=== PATIENT | male | born 1950 | race Caucasian/White ===

== ENCOUNTER 2019-04-19 07:53 | Outpatient (CLI) | payer MEDICARE, SELFPAY ==
--- NOTE | 2019-04-19 07:45 | XR_ITS ---
WS: [id number] ABDOMEN: SUPINE FILM HISTORY: RENAL CALCULUS,LEFT COMPARISON: 03/10/2019 Normal bowel gas pattern. Calcification over the RIGHT ilium has been present on multiple prior exami nations. Enthesopathy at the iliac crests. Right kidney: No renal or ureteral stone identified. Left kidney: Previously seen LEFT double pigtail ureteral stent has been removed. No residual calcifi cations of the kidney or ureter. XR/XR KUB 15032 IMPRESSION: 1. Interval removal of the LEFT ureteral stent. 2. No residual LEFT renal or ureteral calcifications identified.
== END 2019-04-19 07:54 | disposition home or self-care (01) ==
LOC: RAD 08:00
PROVIDERS: Family Provider Internal Medicine; PCP Internal Medicine; Visit Provider Urology
DX: N20.0 Calculus of kidney (principal)
CPT/HCPCS: 74018; 81001

== ENCOUNTER → 2019-10-25 12:46 | Outpatient (BNVA) | payer MEDICARE, SELFPAY | PROVIDERS: Family Provider Internal Medicine; PCP Internal Medicine; Referring Provider Internal Medicine; Visit Provider Specialist | DX: G56.02 Carpal tunnel syndrome, left upper limb (principal); R20.0 Anesthesia of skin; M25.542 Pain in joints of left hand | CPT/HCPCS: 95908 ==

== ENCOUNTER → 2020-02-21 08:08 | Outpatient (BNVA) | payer MEDICARE, SELFPAY | PROVIDERS: Family Provider Internal Medicine; PCP Internal Medicine; Referring Provider Internal Medicine; Visit Provider Urology | DX: R97.20 Elevated prostate specific antigen [PSA] (principal); N20.0 Calculus of kidney | CPT/HCPCS: 81003; 84153 ==

== ENCOUNTER → 2020-03-08 13:17 | Outpatient (BNVA) | payer MEDICARE, SELFPAY | PROVIDERS: Family Provider Internal Medicine; PCP Internal Medicine; Visit Provider Urology | DX: R97.20 Elevated prostate specific antigen [PSA] (principal) | CPT/HCPCS: 88305 ==

== ENCOUNTER 2020-03-25 08:36 | Outpatient (CLI) | payer MEDICARE, SELFPAY ==
--- NOTE | 2020-03-25 08:44 | NM_ITS ---
WS: [id number] NUCLEAR MEDICINE WHOLE BODY BONE SCAN HISTORY: PROSTATE CANCER COMPARISON: None available. TECHNIQUE: The patient was injected with 24.4 mCi of Technetium 99m HDP and serial whole-body scintig jerica have been performed with anterior and posterior images. Large [id number] imaging over the sku ll. There is mild increased uptake at the AC joints and glenohumeral joints and also involving the LEFT k nee. No metastatic lesions are identified within the ribs or spine. Normal soft tissue uptake. Normal activity in the kidneys. NM/NM bone scan whole body* [id number] IMPRESSION: No evidence for osseous metastatic disease.
[2020-03-25 09:56] LABS: Blood Urea Nitrogen 6 mg/dL (8-23); Glomerular Filtration Rate 134.4 mL/min (90-130)
--- NOTE | 2020-03-25 10:00 | CT_ITS ---
WS: [id number] CT ABDOMEN AND PELVIS WITH AND WITHOUT CONTRAST HISTORY: PROSTATE CANCER TECHNIQUE: Unenhanced 5 mm axial imaging first performed through the abdomen. Post contrast imaging t hrough the abdomen and pelvis. Oral contrast has not been provided. Sagittal and coronal reformats a re submitted. All CT scans at [facility] use at least one of these dose optimization tech niques: automated exposure control; mA and/or kV adjustment per patient size (includes targeted exams where dose is matched to clinical indication); or iterative reconstruction. CONTRAST: Omnipaque 300; 95 mL IV. DLP: 2993.0 mGy.cm COMPARISON: 01/31/2019 No change in the 2 to 3 mm nodules at the lung bases. Some of these are calcified. No enlarging nodul es. Heart size is slightly enlarged. Small hiatal hernia. Liver is negative. No bile duct dilatation. Cholelithiasis likely. Normal size spleen with granulomat a. Normal pancreas. No bile duct dilatation. Normal adrenal glands. RIGHT kidney: Nonobstructing linear 10 mm calcification in the central kidney seen on the prior study also. No significant increase in size. There is no obstruction. There are numerous hypodensities sca ttered throughout the cortex. Some of these are too small to characterize and others are small cysts. No definite solid mass. LEFT kidney: No obstruction or calcifications. Numerous hypodensities scattered throughout the cortex . The largest from the mid kidney measures 2.4 cm. Some of these are too small to characterize. Aorta: Moderate atherosclerosis with no aneurysm. No GI tract obstruction. The appendix is normal. No significant diverticular disease. Mild constipati on. No ascites or adenopathy. Soft tissues thickening in the LEFT anterior abdominal wall is probably an injection site. Nondistended urinary bladder. Prostate gland is mildly heterogeneous and prominent measuring 5.6 x 3. 9 x 4.7 cm. No osteoblastic or osteolytic bone disease. Bilateral sacroiliitis. SI joints are partially fused. Bi lateral patent inguinal canals. CT/CT abdomen pelvis wo/w [id number] IMPRESSION: 1. No metastatic disease within the abdomen or pelvis. 2. Nonobstructing RIGHT renal calculus measuring 10 mm. 3. Bilateral renal cysts. Some of the hypodensities are too small to character ize. 4. Multiple moderate atherosclerosis aorta. 5. Mildly enlarged heterogeneous prostate gland. 6. Cholelithiasis.
[2020-03-25] MEDS: iohexol 300 mg/mL 100 mL Btl IV (10:45)
== END 2020-03-25 08:37 | disposition home or self-care (01) ==
PROVIDERS: PCP Internal Medicine; Visit Provider Urology
DX: C61 Malignant neoplasm of prostate (principal); K80.20 Calculus of gallbladder without cholecystitis without obstruction; N40.0 Benign prostatic hyperplasia without lower urinary tract symptoms; I70.0 Atherosclerosis of aorta; Q61.02 Congenital multiple renal cysts; N20.0 Calculus of kidney
CPT/HCPCS: 36415; 74178; 78306; 82565; 84520; A9561

== ENCOUNTER 2020-04-04 07:57 | Outpatient (CLI) | payer MEDICARE, SELFPAY ==
--- NOTE | 2020-04-04 17:15 | ONC CON_ITS ---
Dr. Kinney New Patient Note Patient: Ayaan Stanley Unit #: [id number]: 1950 Dicatated By: Phani Kinney M.D.Date of Visit: Apr 04, 2020 Onc MED New Patient/Consult Referring Physician: Dr. Gilbert Muhammad M.D. History of Present Illness: Mr. Ayaan Stanley, is a 69-year-old gentleman with a history of left carpal tunnel syndrome diagnosed in October 2019, as per patient at that time his PMD ordered PSA as a routine follow-up lab work-up and it came back about 10, he was referred to urology for evaluation and on March 08, 2020 he underwent TRUSP/biopsy which confirmed bilateral large volume involvement of Wan 3+4, 4+3(50 to 95%), and one area of 4+4 (60%) and his PSA was 10.7. Patient underwent CT scan of abdomen pelvis and bone scan on March 25, 2020 which showed no evidence of metastatic disease, being high risk e.g. Wan score 4+4, treatment options were discussed by urology including active surveillance, robotic surgery, radiation therapy, cryotherapy, ADT, combined radiotherapy/brachytherapy/ADT, patient is evaluating his options and he is here to discuss about ADT. Patient denies any hematuria denies any urinary retention, denies any bony pains denies any weight loss, denies any fever chills, denies any hematuria, denies any diarrhea or constipation or melena or hematochezia. Patient denies smoking or alcohol use Past Medical History: Mr. Stanley's medical history consists of atrial fibrillation, dyslipidemia, hypertension, renal calculi, and type II diabetes. Past Surgical History: Mr. Stanley's surgical/procedural history consists of lithrotripsy. Medications: Apixaban 1 Tablet (of 5 mg) Oral daily, Cinnamon 1 Capsule (of 500 mg) Oral daily, Digoxin 1 Tablet (of 250 mcg) Oral daily, HumuLIN N KwikPen 500 Units (of 100 Units/mL) Subcutaneous t.i.d., Lisinopril 1 Tablet (of 2.5 mg) Oral daily, metFORMIN HCl 2 Tablet (of 500 mg) Oral daily, Metoprolol Succinate ER 1 Tablet (of 25 mg) Tablet SR 24 HR Oral daily, Simvastatin 1 Tablet (of 80 mg) Oral daily Allergies: No Known Allergies. Social History: Mr. Stanley is . Mr. Stanley has never smoked. He has no history of drinking. Family History: Mr. Stanley's father at age 58: stroke. Review Of Symptoms: Constitutional - Appetite is good and weight is stable. No fever, night sweats, or hot flashes. Energy level is good, ENMT - No sinus congestion/drainage. No mouth sores. No sore throat or difficulty swallowing, Hematologic/Lymphatic - No abnormal bruising or bleeding, Respiratory - No shortness of breath. No cough. No pleuritic pain or hemoptysis, Cardiovascular - No angina pain. No palpitations, Gastrointestinal - No nausea or vomiting. No heartburn or acid reflux. Positive for diarrhea. No constipation. No blood in the stool or black stools, Genitourinary (M) - No dysuria or hematuria. Positive for urinary frequency. No urgency or incontinence, Musculoskeletal - No joint or bone pain, Neurologic - No headache or dizziness. No numbness or tingling. No other focal neurologic symptoms, Psychiatric - No anxiety or depression. No insomnia. Vital Signs: Most recent vitals are not available for this patient. Performance Status: 0 - Fully active, able to carry on all predisease activities without restrictions. (ECOG) Physical Examination: ENMT - No mouth sores, no thrush, no jaundice, Respiratory - Lungs are clear to auscultation, Cardiovascular - Regular rate and rhythm of heart, Abdomen - Soft, bowel sounds present, Extremities - No visible edema. Lab/Imaging: Most recent lab results are not available for this patient. Impression: Prostatic adenocarcinoma per TUR SP/biopsy done on March 08, 2020 final pathology report came back Viper score 3+4, 4+3 (50-95%), 1 area of 4+4 (60%) CT scan of abdomen pelvis done on March 25, 2020 showed no evidence of metastatic disease within the abdomen pelvis, nonobstructive right renal calculus measuring 10 mm and bone scan shows no evidence of osseous metastatic disease Longstanding history of multiple stones status post ESWL in 2013 and in March 2019 ESWL x2 for 1.2 cm left UPJ stone Plan: Discussed with patient regarding his disease status and treatment options including, as per NCCN guidelines, being high risk, radiation therapy and or /brachytherapy/ADT for 2 to 3 years or surgery All the side effects possible benefits associated with ADT including but not limited to hot flashes, mood swings, gynecomastia, bone demineralization, muscle wasting, decreased libido were mentioned. Patient and his expressed full understanding and now would consult surgery and radiation oncology before the make their decision. Patient will call Dr. Muhammad regarding referral to surgery for consultation. He will return to clinic 1 week after surgical evaluation unless patient decided to proceed with surgery. Signed By: Phani Kinney M.D. <<Signature on File>>
== END 2020-04-04 07:58 | disposition home or self-care (01) ==
LOC: ONCMED 08:03
PROVIDERS: PCP Internal Medicine; Visit Provider Internal Medicine Hematology & Oncology
DX: C61 Malignant neoplasm of prostate (principal); Z87.442 Personal history of urinary calculi
CPT/HCPCS: 99203

== ENCOUNTER → 2021-09-16 15:07 | Outpatient (BNVA) | payer MEDICARE, SELFPAY | PROVIDERS: PCP Internal Medicine; Visit Provider Internal Medicine | DX: I48.91 Unspecified atrial fibrillation (principal); I10 Essential (primary) hypertension; E78.5 Hyperlipidemia, unspecified; E11.9 Type 2 diabetes mellitus without complications; Z79.01 Long term (current) use of anticoagulants | CPT/HCPCS: 80048; 83880; 99214 ==

== ENCOUNTER 2022-05-18 13:50 | Oncology outpatient (recurring) (ONCR) | payer MEDICARE, SELFPAY ==
--- NOTE | 2022-05-18 14:44 | N.ONRAD NP_ITS ---
Radiation Oncology Consultation Patient Name: Ayaan Stanley Date of : 1950 Date of Service: 05/18/2022 Attending Physician: Marcelino Giron M.D. Ayaan Stanley was seen in consultation this morning at the request of Marcelino Isaacs M.D. for consideration of salvage radiotherapy in the management of a previously diagnosed prostate cancer with a recent biochemical failure. He initially was diagnosed in March of 2020 with prostate cancer. The initial PSA was 10.7 ng/mL. A TRUS biopsy completed on March 08, 2020 diagnosed an adenocarcinoma of the prostate gland with a Wan score 4+4 (grade group 4). An abdominopelvic CT scan and bone scintigraphy did not demonstrate metastatic disease. A laparoscopic robot-assisted prostatectomy with bilateral pelvic lymphadenectomy was performed by Marcelino Isaacs M.D on June 12, 2020. The pathology report (outside hospital records were requested and reviewed in [facility]) confirmed an adenocarcinoma the prostate (40-50 % involvement) with a Wan score of 4+3 (pT2c). A positive surgical margin for malignancy was identified at the apex and posterior aspect of the specimen. Perineural invasion was noted. A total of 2 pelvic lymph nodes (1 right pelvic lymph node and 1 left pelvic lymph node) did not harbor malignancy. The initial postoperative PSA undetectable. The patient's PSA level incipiently has risen to 0.12 ng/mL in April of 2022. He was referred for salvage radiotherapy. I reviewed the recommendations The National Comprehensive Cancer Network Guidelines with consideration of androgen deprivation therapy for salvage radiotherapy. I also discussed the RTOG 9601 trial that determined 24 months of antiandrogen therapy with salvage radiotherapy resulted in an improvement in overall survival, the GETUG-AFU 16 and GETUG-AFU 17 studies that attested improvement in progression-free survival to the patients that were randomized to radiotherapy in conjunction with short-term hormonal suppression, as well as, the RADICALS studies that demonstrated non-inferiority in progression-free survival for salvage radiotherapy compared to adjuvant treatment. I would endorse a 6 1/2 week course of radiotherapy with consideration for concurrent gonadotropin releasing hormone agonist pharmacotherapy. I will order a scrotal ultrasound on account of his complaint of right-sided scrotal pain. Prior to beginning treatment, a CT scan will be acquired in the treatment position to delineate the clinical target volume. Toxicities of pelvic radiotherapy were also canvassed. The patient has verbalized understanding would like proceed as recommended. The patient's medical treatment plan was discussed with Marcelino Isaacs M.D. Signed by: Dr. Marcelino Giron 05/18/2022 2:42:37 PM
== END 2022-06-02 23:59 | disposition home or self-care (01) ==
LOC: ONCMED 13:50
PROVIDERS: PCP Internal Medicine; Visit Provider Radiology Radiation Oncology
DX: C61 Malignant neoplasm of prostate (principal)
CPT/HCPCS: 99205

== ENCOUNTER 2022-06-15 08:04 | Outpatient (CLI) | payer MEDICARE, SELFPAY ==
--- NOTE | 2022-06-15 08:30 | US_ITS ---
WS: [id number] TESTICULAR ULTRASOUND HISTORY: scrotal edema COMPARISON: None available. TECHNIQUE: Real-time and color Doppler imaging or utilized to perform a testicular ultrasound. Right testicle: 4.4 cm x 3.5 cm x 2.9 cm. Normal sized testicle. Very mild heterogeneity throughout the testicle but no mass. Normal vascularit y. Normal color Doppler is present throughout. Systolic and diastolic velocities are both present. Large mildly complex hydrocele. Low level echoes are noted within the hydrocele. There is also very m ild scrotal wall thickening. No focal collection. Right epididymis: Not visualized. Left testicle: 4.5 cm x 3.3 cm x 2.4 cm. Normal sized testicle. Mild heterogeneity but no mass. Normal vascularity. Normal color Doppler is present throughout. Systolic and diastolic velocities are both present. No significant hydrocele. Left epididymis: Normal epididymis with no increased vascularity. Minimal scrotal wall thickening without a focal collection. US/US scrotum [id number] IMPRESSION: 1. No testicular mass or torsion. 2. Large minimally complex RIGHT hydrocele. 3. Very mild scrotal wall thickening.
== END 2022-06-15 08:05 | disposition home or self-care (01) ==
PROVIDERS: PCP Internal Medicine; Visit Provider Radiology Radiation Oncology
DX: N50.89 Other specified disorders of the male genital organs (principal); I48.91 Unspecified atrial fibrillation; I10 Essential (primary) hypertension; N43.3 Hydrocele, unspecified
CPT/HCPCS: 76870; 99214

== ENCOUNTER 2022-07-31 08:43 | Oncology outpatient (recurring) (ONCR) | payer MEDICARE, SELFPAY ==
[2022-07-06 14:56] LABS: Basophils # 0.1 10^3/uL (0.0-0.1); Basophils % 0.7 %; Eosinophils # 0.2 10^3/uL (0.0-0.8); Eosinophils % 2.3 %; Hematocrit 44.1 % (42.0-52.0); Hemoglobin 14.7 g/dL (11.7-16.6); Lymphocytes # 3.5 10^3/uL (0.8-4.8); Lymphocytes % 46.2 %; Mean Corpuscular HGB Conc 33.3 g/dL (30.0-36.0); Mean Corpuscular Hemoglobin 31.5 pg (28.0-34.0); Mean Corpuscular Volume 94.4 fl (80-94); Mean Platelet Volume 9.6 fL (7.4-10.4); Monocytes # 0.8 10^3/uL (0.2-0.9); Monocytes % 10.2 %; Neutrophils # 3.01 10^3/uL (1.8-7.7); Neutrophils % 40.2 %; Nucleated Red Blood Cells % 0 %; Platelet Count 216 10^3/cmm (130-400); Red Blood Count 4.67 10^6/uL (4.1-5.3); Red Cell Distribution Width 13.3 % (12.1-15.1); White Blood Count 7.5 10^3/uL (4.0-10.0)
[2022-07-06 15:16] LABS: Alanine Aminotransferase 30 U/L (0-41); Albumin Level 4.1 g/dL (3.5-5.2); Alkaline Phosphatase 59 U/L (40-130); Anion Gap 14.7 (5-19); Aspartate Amino Transferase 28 U/L (0-40); Blood Urea Nitrogen 9 mg/dL (8-23); Calcium 9.3 mg/dL (8.5-10.5); Carbon Dioxide 23 mmol/L (22-29); Chloride 101 mmol/L (98-107); Globulin 1.9 g/dL (1.3-4.6); Glomerular Filtration Rate 133.6 mL/min (90-130); Glucose 118 mg/dL (65-115); Osmolality Calculated 280 mOsm/kg (285-295); Potassium 3.7 mmol/L (3.5-5.1); Sodium 135 mmol/L (136-145); Total Bilirubin 1.4 mg/dL (0.15-1.2)
[2022-07-06 19:22] LABS: Prostate Specific Antigen < 0.014 ng/mL (0-4)
--- NOTE | 2022-07-15 | CT_ITS ---
Radiation Therapy Planning CT images; total exam DLP: 1152.33 mGy-cm MTDD
--- NOTE | 2022-07-20 11:01 | ONCRAD TMN_ITS ---
Radiation Oncology Treatment Management Note Patient Name: Ayaan Stanley Date of : 1950 Date of Service: 07/20/2022 Attending Physician: Marcelino Giron M.D. Ayaan Stanley is a 71 year-old white male previously diagnosed prostate cancer with a recent biochemical failure. He initially was diagnosed in March of 2020 with prostate cancer. The initial PSA was 10.7 ng/mL. A TRUS biopsy completed on March 08, 2020 diagnosed an adenocarcinoma of the prostate gland with a Henderson score 4+4 (grade group 4). An abdominopelvic CT scan and bone scintigraphy did not demonstrate metastatic disease. A laparoscopic robot-assisted prostatectomy with bilateral pelvic lymphadenectomy was performed by Marcelino Isaacs M.D on June 12, 2020. The pathology report confirmed an adenocarcinoma the prostate (40-50 % involvement) with a Wan score of 4+3 (pT2c). A positive surgical margin for malignancy was identified at the apex and posterior aspect of the specimen. Perineural invasion was noted. A total of 2 pelvic lymph nodes (1 right pelvic lymph node and 1 left pelvic lymph node) did not harbor malignancy. The initial postoperative PSA undetectable. The patient's PSA level incipiently has risen to 0.12 ng/mL in April of 2022. A GnRh agonist was prescribed. The patient has received 2 Gy of a prescribed 66 Agudelo to the prostate fossa with an intensity modulated radiotherapy plan utilizing a step and shoot treatment technique. Upon review of systems, he denied any gastrointestinal complaints related to radiotherapy. Baseline nocturia is 3 times. On physical examination, the patient weighed 267 lbs. His temperature was 97 ???F and the blood pressure was 147/89 mmHg. The pulse was 56 bpm and his respiratory rate was 16. Continue pelvic radiotherapy as prescribed. Signed by: Marcelino Giron 07/20/2022 10:59:33 AM
--- NOTE | 2022-07-27 10:44 | ONCRAD TMN_ITS ---
Radiation Oncology Treatment Management Note Patient Name: Ayaan Stanley Date of : 1950 Date of Service: 07/27/2022 Attending Physician: Marcelino Giron M.D. Ayaan Stanley is a 71 year-old white male previously diagnosed prostate cancer with a recent biochemical failure. He initially was diagnosed in March of 2020 with prostate cancer. The initial PSA was 10.7 ng/mL. A TRUS biopsy completed on March 08, 2020 diagnosed an adenocarcinoma of the prostate gland with a [place] score 4+4 (grade group 4). An abdominopelvic CT scan and bone scintigraphy did not demonstrate metastatic disease. A laparoscopic robot-assisted prostatectomy with bilateral pelvic lymphadenectomy was performed by Marcelino Isaacs M.D on June 12, 2020. The pathology report confirmed an adenocarcinoma the prostate (40-50 % involvement) with a Wan score of 4+3 (pT2c). A positive surgical margin for malignancy was identified at the apex and posterior aspect of the specimen. Perineural invasion was noted. A total of 2 pelvic lymph nodes (1 right pelvic lymph node and 1 left pelvic lymph node) did not harbor malignancy. The initial postoperative PSA undetectable. The patient's PSA level incipiently has risen to 0.12 ng/mL in April of 2022. A GnRh agonist was prescribed. The patient has received 22 Gy of a prescribed 66 Agudelo to the prostatic fossa with an intensity modulated radiotherapy plan utilizing a step and shoot treatment technique. Upon review of systems, he denied any complaints related to radiotherapy. On physical examination, the patient weighed 269 lbs. His temperature was 97.3 ???F and the blood pressure was 172/80 mmHg. The pulse was 68 bpm and his respiratory rate was 18. Continue pelvic radiotherapy as planned. Signed by: Marcelino Giron 07/27/2022 10:43:20 AM
== END 2022-07-31 12:06 | disposition home or self-care (01) ==
PROVIDERS: Internal Medicine Hematology & Oncology; PCP Internal Medicine; Visit Provider Radiology Radiation Oncology
DX: Z51.0 Encounter for antineoplastic radiation therapy (principal); C61 Malignant neoplasm of prostate; Z90.89 Acquired absence of other organs; C77.8 Secondary and unspecified malignant neoplasm of lymph nodes of multiple regions
CPT/HCPCS: 36415; 77300; 77301; 77334; 77336; 77338; 77385; 77470; 80053; 84153; 85025; 99024

== ENCOUNTER 2022-08-21 09:42 | Oncology outpatient (recurring) (ONCR) | payer MEDICARE, SELFPAY ==
--- NOTE | 2022-08-03 10:55 | ONCRAD TMN_ITS ---
Radiation Oncology Treatment Management Note Patient Name: Ayaan Stanley Date of : 1950 Date of Service: 08/03/2022 Attending Physician: Marcelino Giron M.D. Ayaan Stanley is a 71 year-old white male previously diagnosed prostate cancer with a recent biochemical failure. He initially was diagnosed in March of 2020 with prostate cancer. The initial PSA was 10.7 ng/mL. A TRUS biopsy completed on March 08, 2020 diagnosed an adenocarcinoma of the prostate gland with a [place] score 4+4 (grade group 4). An abdominopelvic CT scan and bone scintigraphy did not demonstrate metastatic disease. A laparoscopic robot-assisted prostatectomy with bilateral pelvic lymphadenectomy was performed by Marcelino Isaacs M.D on June 12, 2020. The pathology report confirmed an adenocarcinoma the prostate (40-50 % involvement) with a [place] score of 4+3 (pT2c). A positive surgical margin for malignancy was identified at the apex and posterior aspect of the specimen. Perineural invasion was noted. A total of 2 pelvic lymph nodes (1 right pelvic lymph node and 1 left pelvic lymph node) did not harbor malignancy. The initial postoperative PSA undetectable. The patient's PSA level incipiently has risen to 0.12 ng/mL in April of 2022. A GnRh agonist was prescribed. The patient has received 22 Gy of a prescribed 66 Agudelo to the prostatic fossa with an intensity modulated radiotherapy plan utilizing a step and shoot treatment technique. Upon review of systems, he reported increase urinary frequency. On physical examination, the patient weighed 268 lbs. His temperature was 96.5 ???F and the blood pressure was 133/63 mmHg. The pulse was 60 bpm and his respiratory rate was 18. There was no erythema of the skin in the treatment alonzo. Continue pelvic radiotherapy as prescribed. Signed by: Marcelino Giron 08/03/2022 10:54:03 AM
--- NOTE | 2022-08-10 11:00 | ONCRAD TMN_ITS ---
Radiation Oncology Treatment Management Note Patient Name: Ayaan Stanley Date of : 1950 Date of Service: 08/10/2022 Attending Physician: Marcelino Giron M.D. Ayaan Stanley is a 71 year-old white male previously diagnosed prostate cancer with a recent biochemical failure. He initially was diagnosed in March of 2020 with prostate cancer. The initial PSA was 10.7 ng/mL. A TRUS biopsy completed on March 08, 2020 diagnosed an adenocarcinoma of the prostate gland with a [place] score 4+4 (grade group 4). An abdominopelvic CT scan and bone scintigraphy did not demonstrate metastatic disease. A laparoscopic robot-assisted prostatectomy with bilateral pelvic lymphadenectomy was performed by Marcelino Isaacs M.D on June 12, 2020. The pathology report confirmed an adenocarcinoma the prostate (40-50 % involvement) with a [place] score of 4+3 (pT2c). A positive surgical margin for malignancy was identified at the apex and posterior aspect of the specimen. Perineural invasion was noted. A total of 2 pelvic lymph nodes (1 right pelvic lymph node and 1 left pelvic lymph node) did not harbor malignancy. The initial postoperative PSA undetectable. The patient's PSA level incipiently has risen to 0.12 ng/mL in April of 2022. A GnRh agonist was prescribed. The patient has received 32 Gy of a prescribed 66 Agudelo to the prostatic fossa with an intensity modulated radiotherapy plan utilizing a step and shoot treatment technique. Upon review of systems, he did not describe any new complaints. On physical examination, the patient weighed 265 lbs. His temperature was 97.3 ???F and the blood pressure was 119/89 mmHg. The pulse was 88 bpm and his respiratory rate was 18. There was no erythema of the skin in the treatment alonzo. Continue pelvic radiotherapy as planned. Signed by: Marcelino Giron 08/10/2022 10:58:41 AM
[2022-08-12 11:07] LABS: Bilirubin Urine Neg (Negative); Blood Urine Neg (Negative); Glucose Urine UA 4+ (Normal); Ketones Urine 1+ (Negative); Leukocyte Esterase Urine Negative (Negative); Nitrate Urine Negative (Negative); Protein Urine Neg (Negative); Urine Appearance Clear (CLEAR); Urine Color Colorless (Yellow); Urobilinogen Urine Neg (Negative); pH Urine 7 (5-7)
[2022-08-12 11:08] LABS: Add Urine Culture? No; RBC Urine RARE /hpf (0-2)
--- NOTE | 2022-08-17 11:02 | N.ONRD TS_ITS ---
Radiation OncologyTreatment Summary Patient Name: Ayaan Stanley Date of : 1950 Date of Service: 08/17/2022 Attending Physician: Marcelino Giron M.D. Ayaan Stanley is a 71 year-old white male previously diagnosed prostate cancer with a recent biochemical failure. He initially was diagnosed in March of 2020 with prostate cancer. The initial PSA was 10.7 ng/mL. A TRUS biopsy completed on March 08, 2020 diagnosed an adenocarcinoma of the prostate gland with a [place] score 4+4 (grade group 4). An abdominopelvic CT scan and bone scintigraphy did not demonstrate metastatic disease. A laparoscopic robot-assisted prostatectomy with bilateral pelvic lymphadenectomy was performed by Marcelino Isaacs M.D on June 12, 2020. The pathology report confirmed an adenocarcinoma the prostate (40-50 % involvement) with a [place] score of 4+3 (pT2c). A positive surgical margin for malignancy was identified at the apex and posterior aspect of the specimen. Perineural invasion was noted. A total of 2 pelvic lymph nodes (1 right pelvic lymph node and 1 left pelvic lymph node) did not harbor malignancy. The initial postoperative PSA undetectable. The patient's PSA level incipiently has risen to 0.12 ng/mL in April of 2022. A GnRh agonist was prescribed. The patient has received 42 Gy of a prescribed 66 Agudelo to the prostatic fossa with an intensity modulated radiotherapy plan utilizing a step and shoot treatment technique. Upon review of systems, he did not report any new symptoms. On physical examination, the patient weighed 264 lbs. His temperature was 97.1 ???F and the blood pressure was 146/95 mmHg. The pulse was 62 bpm and his respiratory rate was 18. There was no erythema of the skin in the treatment alonzo. Continue pelvic radiotherapy as prescribed. Signed by: Marcelino Giron 08/30/2022 9:47:47 AM
== END 2022-08-24 09:24 | disposition home or self-care (01) ==
PROVIDERS: PCP Internal Medicine; Visit Provider Radiology Radiation Oncology
DX: Z51.0 Encounter for antineoplastic radiation therapy (principal); C61 Malignant neoplasm of prostate; Z90.89 Acquired absence of other organs; C77.8 Secondary and unspecified malignant neoplasm of lymph nodes of multiple regions; Z79.899 Other long term (current) drug therapy
CPT/HCPCS: 77336; 77385; 81001; 99024; 99213

== ENCOUNTER 2022-09-02 09:47 | Oncology outpatient (recurring) (ONCR) | payer MEDICARE, SELFPAY ==
--- NOTE | 2022-08-24 12:46 | ONCRAD TMN_ITS ---
Radiation Oncology Weekly Treatment Management Patient: Jaden Kuo MR#: [id number] : 1950 Attending Physician: Cornelius Villalobos M.D. Date of Service: 08/24/2022 Referring Physician(s) : Phani Kinney M.D. Diagnosis: C61 - Malignant neoplasm of prostate, Diagnosed 04/04/2020 (Active) Radiotherapy to date: Course: Prostate Ca BCF, Treatment Site: Prostate Ca - Biochemical Failure, Ref. ID: [id number], Energy: 6X, Dose/Fx (cGy): 200, #Fx: / 33, Dose Correction (cGy): 0, Total Dose (cGy): 5,200, Start Date: 07/20/2022, Elapsed Days: 35 Reason for visit: The patient is being seen today as part of their regularly scheduled weekly on treatment visits to assess for acute toxicities from radiotherapy. Review of Systems: 5 x nocturia which is ongoing. Not interested in beginning Flomax. Bowels pass with some pain which was absent today. Using prep H and some other local treatment. No diarrhea. Inactive at home watching TV. Vital Signs: Performed on 08/24/2022 10:58 AM BMI - 36.43 kg/m2 (high), Height - 71 in, Weight - 261.2 lbs, Temperature - 97.2 f, Pulse - 74 /min, Respiration - 18 /min, O2 Sat - 97 %, Pain - 0, Fatigue - 5 and BP - 171/ 88 mm(hg)(high/). Physical Exam: Imaging: Radiation therapy imaging related to accurate target localization (i.e. KV, MV and CBCT) was reviewed. Appropriate changes, if any, were made to ensure treatment accuracy. Plan: Good tolerance of treatment. Continue as planned. Signed by: Cornelius Villalobos 08/24/2022 12:44:25 PM
--- NOTE | 2022-09-01 12:13 | ONCRAD TMN_ITS ---
Radiation Oncology Treatment Management Note Patient Name: Ayaan Stanley Date of : 1950 Date of Service: 09/01/2022 Attending Physician: Marcelino Giron M.D. Ayaan Stanley is a 71 year-old white male previously diagnosed prostate cancer with a recent biochemical failure. He initially was diagnosed in March of 2020 with prostate cancer. The initial PSA was 10.7 ng/mL. A TRUS biopsy completed on March 08, 2020 diagnosed an adenocarcinoma of the prostate gland with a Alva score 4+4 (grade group 4). An abdominopelvic CT scan and bone scintigraphy did not demonstrate metastatic disease. A laparoscopic robot-assisted prostatectomy with bilateral pelvic lymphadenectomy was performed by Marcelino Isaacs M.D on June 12, 2020. The pathology report confirmed an adenocarcinoma the prostate (40-50 % involvement) with a Wan score of 4+3 (pT2c). A positive surgical margin for malignancy was identified at the apex and posterior aspect of the specimen. Perineural invasion was noted. A total of 2 pelvic lymph nodes (1 right pelvic lymph node and 1 left pelvic lymph node) did not harbor malignancy. The initial postoperative PSA undetectable. The patient's PSA level incipiently has risen to 0.12 ng/mL in April of 2022. A GnRh agonist was prescribed. The patient has received 62 Gy of a prescribed 66 Agudelo to the prostatic fossa with an intensity modulated radiotherapy plan utilizing a step and shoot treatment technique. Upon review of systems, he continues to describe nocturia (3-5 times). On physical examination, the patient weighed 267 lbs. His temperature was 96.8 ???F and the blood pressure was 142/77 mmHg. The pulse was 81 bpm and his respiratory rate was 18. Continue pelvic radiotherapy as planned. Signed by: Marcelino Giron 09/01/2022 12:11:59 PM
== END 2022-09-02 23:59 | disposition home or self-care (01) ==
PROVIDERS: PCP Internal Medicine; Visit Provider Radiology Radiation Oncology
DX: Z51.0 Encounter for antineoplastic radiation therapy (principal); C61 Malignant neoplasm of prostate; Z90.89 Acquired absence of other organs; C77.8 Secondary and unspecified malignant neoplasm of lymph nodes of multiple regions; R35.1 Nocturia; Z79.899 Other long term (current) drug therapy
CPT/HCPCS: 77336; 77385; 99024

== ENCOUNTER 2022-10-02 10:26 | Oncology outpatient (recurring) (ONCR) | payer MEDICARE, SELFPAY ==
--- NOTE | 2022-09-03 10:03 | N.ONRD TS_ITS ---
Radiation OncologyTreatment Summary Patient Name: Ayaan Stanley Date of : 1950 Date of Service: 09/03/2022 Attending Physician: Marcelino Giron M.D. Jaden Kuo has completed salvage radiotherapy for the management of prostate cancer with a recent biochemical failure. He initially was diagnosed in March of 2020 with prostate cancer. The initial PSA was 10.7 ng/mL. A TRUS biopsy completed on March 08, 2020 diagnosed an adenocarcinoma of the prostate gland with a Wan score 4+4 (grade group 4). An abdominopelvic CT scan and bone scintigraphy did not demonstrate metastatic disease. A laparoscopic robot-assisted prostatectomy with bilateral pelvic lymphadenectomy was performed by Marcelino Isaacs M.D on June 12, 2020. The pathology report confirmed an adenocarcinoma the prostate (40-50 % involvement) with a Wan score of 4+3 (pT2c). A positive surgical margin for malignancy was identified at the apex and posterior aspect of the specimen. Perineural invasion was noted. A total of 2 pelvic lymph nodes (1 right pelvic lymph node and 1 left pelvic lymph node) did not harbor malignancy. The initial postoperative PSA undetectable. The patient's PSA level incipiently has risen to 0.12 ng/mL in April of 2022. Pelvic radiation therapy was delivered between the dates of July 20, 2022 through September 03, 2022. A prescribed dose of 66 Gy was delivered in 33 fractions encompassing 45 elapsed days. The prostatic fossa was treated utilizing an intensity modulated radiotherapy plan with a step and shoot treatment technique. The plan arranged nine gantry angles (0???, 30???, 60???, 120???, 150???, 220???, 260???, 300???, and 330???) replicating an arc. The collimator rotation was 0???. The field sizes spanned between 13 cm x 9 cm to 14 cm x 9 cm. The SSDs measured a minimum of 77.3 cm to a maximum of 85.5 cm. The ports delivered 241 MU, 184 MU, 173 MU, 153 MU, 175 MU, 186 MU, 178 MU, 138 MU, and 198 MU corresponding to the gantry angles described. Low-energy photons were prescribed. All treatments were performed with the [employer] linear accelerator and an isocentric technique. High energy photons were prescribed. The dose was calculated by Anisotropic Analytic Algorithm with the plan normalized to deliver 100% of the prescription dose to 98% of the planning target volume. A GnRH agonist was administered by his urologist prior to radiotherapy. Signed by: Dr. Marcelino Giron 09/03/2022 10:00:51 AM
--- NOTE | 2022-10-02 10:55 | ONCRAD EPV_ITS ---
Radiation Oncology Follow-Up Note Patient Name: Ayaan Stanley Date of : 1950 Date of Service: 10/02/2022 Attending Physician: Marcelino Giron M.D. Jaden Kuo returned to my office this morning for a scheduled follow-up appointment. He completed salvage prostatic fossa radiotherapy in September. He initially was diagnosed in March of 2020 with prostate cancer. The initial PSA was 10.7 ng/mL. A TRUS biopsy completed on March 08, 2020 diagnosed an adenocarcinoma of the prostate gland with a Wan score 4+4 (grade group 4). An abdominopelvic CT scan and bone scintigraphy did not demonstrate metastatic disease. A laparoscopic robot-assisted prostatectomy with bilateral pelvic lymphadenectomy was performed by Marcelino Isaacs M.D on June 12, 2020. The pathology report confirmed an adenocarcinoma the prostate (40-50 % involvement) with a Wan score of 4+3 (pT2c). A positive surgical margin for malignancy was identified at the apex and posterior aspect of the specimen. Perineural invasion was noted. A total of 2 pelvic lymph nodes (1 right pelvic lymph node and 1 left pelvic lymph node) did not harbor malignancy. The initial postoperative PSA undetectable. The patient's PSA level incipiently has risen to 0.12 ng/mL in April of 2022. Pelvic radiation therapy was delivered between the dates of July 20, 2022 through September 03, 2022. A prescribed dose of 66 Gy was delivered in 33 fractions encompassing 45 elapsed days. On review of systems, he described nocturia (3-4 times). On physical examination, he weighed 260 pounds. The temperature was 96.2???F and his blood pressure was 119/84 mmHg. The pulse was 56 bpm and his respiratory rate was 18 breaths per minute. Genitourinary exam was deferred. In summary, Mr. Kuo returned for a routine post-radiotherapy follow-up. He continues to decline Flomax for LUTS. He will continue follow-up with his urologist as scheduled. Signed by: Dr. Marcelino Giron 10/02/2022 10:54:25 AM
== END 2022-10-02 23:59 | disposition home or self-care (01) ==
PROVIDERS: PCP Internal Medicine; Visit Provider Internal Medicine Medical Oncology
DX: Z51.0 Encounter for antineoplastic radiation therapy (principal); C61 Malignant neoplasm of prostate; Z90.89 Acquired absence of other organs; C77.8 Secondary and unspecified malignant neoplasm of lymph nodes of multiple regions
CPT/HCPCS: 77014; 77336; 77385; 99024

== ENCOUNTER 2022-12-09 14:54 | Outpatient (CLI) | payer MEDICARE, SELFPAY ==
--- NOTE | 2022-12-09 15:14 | CT_ITS ---
WS: [id number] CT ABDOMEN AND PELVIS WITH CONTRAST HISTORY: ABDOMINAL PAIN, LEFT upper quadrant pain. TECHNIQUE: Imaging performed of the abdomen and pelvis with IV contrast. Single phase imaging of the abdomen. Coronal and sagittal reformats are submitted. All CT scans at [facility] use at [facility] [facility] one of these dose optimization techniques: automated exposure control; mA and/or kV adjustment per patient size (includes targeted exams where dose is matched to clinical indication); or iterative re construction. IV CONTRAST: Omnipaque 350; 100 mL IV. Oral contrast: Yes. DLP: 1038.33 mGy.cm COMPARISON: 03/25/2020 Lower thorax: Benign pulmonary nodules at the lung bases. Some of these are calcified. Nodules were i dentified in 2020 also. Mild cardiomegaly. Small hiatal hernia. Liver/biliary system: Moderate hepatomegaly. Mild hepatic steatosis. No mass. Normal portal vein. Gallbladder: Very tiny foci of increased density within the gallbladder. Suspect cholelithiasis. No e vidence for acute cholecystitis. Pancreas: Again noted is atrophied pancreatic tail. This is probably a normal variant as this has bee n documented on prior studies. Spleen: Normal size with granulomata. Adrenal glands: Normal. Right kidney: Normal size kidney. Cortical cysts throughout the kidney. Some of these are too small t o characterize. No solid mass. Left kidney: Normal size kidney. Cortical cysts with the largest measuring 2.5 cm. Some of these jd ical hypodensities are too small to characterize. Aorta: Mild atherosclerosis with no aneurysm. Lymphadenopathy: None. Free fluid: None. GI tract: No GI tract obstruction. Normally distended stomach. No small bowel obstruction. Normal toan endix. Increasing fecal material throughout the colon with chronic constipation. Hernia in the LEFT l ateral abdominal wall near the level of the iliac crest contains a loop of sigmoid colon. There is no obstruction. Abdominal wall: LEFT lateral abdominal wall hernia extends through the deep and superficial musculatu re of the abdominal wall. Hernia contains a loop of colon. There is no obstruction at this time. The orifice of the hernia is 2.6 cm. Pelvis: No free fluid or adenopathy within the pelvis. Bones: Mild increase in the lumbar lordosis. Mild narrowing and partial fusion of the SI joints. IMPRESSION: 1. LEFT lateral abdominal wall hernia extends through the deep and superficial musculature. Hernia c ontains a loop of nondilated or obstructed sigmoid colon. 2. Bilateral renal cysts. Additional low-attenuation cortical hypodensities are too small to charact erize. 3. Moderate cardiomegaly. 4. Moderate hepatomegaly with hepatic steatosis. 5. Suspicious but indeterminate for cholelithiasis. No evidence for acute cholecystitis. Gallbladder can be evaluated by ultrasound1
[2022-12-09 16:29] LABS: Blood Urea Nitrogen 7 mg/dL (8-23); Glomerular Filtration Rate 111.5 mL/min (90-130)
[2022-12-09] MEDS: iohexol 350 mg/mL 500 mL Btl (per mL) IV (16:43)
[2022-12-09] MEDS: iohexol 350 mg/mL 500 mL Btl (per mL) PO (16:44)
== END 2022-12-09 14:55 | disposition home or self-care (01) ==
LOC: RAD 14:56
PROVIDERS: Radiology Diagnostic Radiology; PCP Internal Medicine; Visit Provider Family Medicine
DX: K43.9 Ventral hernia without obstruction or gangrene (principal); I51.7 Cardiomegaly; K76.0 Fatty (change of) liver, not elsewhere classified; R16.0 Hepatomegaly, not elsewhere classified
CPT/HCPCS: 74177; 82565; 84520; Q9967

== ENCOUNTER → 2023-01-19 09:50 | Outpatient (BNVA) | payer MEDICARE, SELFPAY | PROVIDERS: PCP Internal Medicine; Visit Provider Podiatrist Foot & Ankle Surgery | DX: E08.43 Diabetes mellitus due to underlying condition with diabetic autonomic (poly)neuropathy (principal); L84 Corns and callosities; B35.1 Tinea unguium; R23.4 Changes in skin texture; M20.21 Hallux rigidus, right foot; M20.22 Hallux rigidus, left foot; Z79.4 Long term (current) use of insulin; Z79.84 Long term (current) use of oral hypoglycemic drugs | CPT/HCPCS: 11055; 11721; 99204 ==

== ENCOUNTER 2023-03-11 06:12 | Outpatient (CLI) | payer MEDICARE, SELFPAY ==
--- NOTE | 2023-03-11 | US_ITS ---
WS: [id number] RIGHT UPPER QUADRANT ULTRASOUND HISTORY: RUQ PAIN COMPARISON: 01/27/2011 Liver: 20.6 cm in length. Moderately enlarged liver. No mass or bile duct dilatation. Coarse echotext ure from hepatic steatosis. Portal Vein: Normal hepatopetal flow with monophasic waveform. Gallbladder: Normally distended gallbladder. There is a small amount of nonshadowing but mobile debri s in the gallbladder. Suspect there is a small amount of sludge and nonshadowing stones. CBD: 0.4 cm Pancreas: Normal size and echogenicity. Right kidney: 13.1 cm in length. Normal size and echogenicity. No hydronephrosis or mass. Aorta and IVC: Unremarkable abdominal aorta and IVC. No ascites. IMPRESSION: 1. Normally distended gallbladder. No evidence for acute cholecystitis. There is a small amount of no nshadowing debris in the gallbladder. Small amount of sludge and/or small nonshadowing gallstones. 2. Moderate hepatomegaly.
== END 2023-03-11 06:13 | disposition home or self-care (01) ==
LOC: RAD 06:12
PROVIDERS: PCP Internal Medicine; Visit Provider Internal Medicine
DX: K82.8 Other specified diseases of gallbladder (principal); R16.0 Hepatomegaly, not elsewhere classified; R10.9 Unspecified abdominal pain
CPT/HCPCS: 76705

== ENCOUNTER → 2023-03-15 12:44 | Outpatient (BNVA) | payer MEDICARE, SELFPAY | PROVIDERS: PCP Internal Medicine; Visit Provider Internal Medicine | DX: E78.5 Hyperlipidemia, unspecified (principal); E11.9 Type 2 diabetes mellitus without complications; I10 Essential (primary) hypertension; I48.91 Unspecified atrial fibrillation; Z79.01 Long term (current) use of anticoagulants; Z79.4 Long term (current) use of insulin | CPT/HCPCS: 99214 ==

== ENCOUNTER 2023-04-22 09:38 | Outpatient (CLI) | payer MEDICARE, SELFPAY ==
--- NOTE | 2023-04-22 09:43 | NM_ITS ---
WS: [id number] NUCLEAR MEDICINE HIDA SCAN WITH GALLBLADDER EJECTION FRACTION HISTORY: RUQ PAIN COMPARISON: 01/30/2011 and 03/11/2023 TECHNIQUE: The patient was intravenously injected with 7.4 mCi of TC99m Mebrofenin. Immediate imaging over the right upper quadrant was followed by 5 minute image and additional images for a total of 60 minutes. Normal uptake of radiotracer throughout the liver. Activity identified in the gallbladder at 20 minutes and minimally distended by 60 minutes. Activity in the proximal small bowel was seen by 15 minutes. Good washout of the radiotracer from the liver by 60 minutes. The patient then drank 8 ounces of Ensure Plus. Ejection fraction at 60 minutes was 69%. Normal GB ej ection fraction is 35-75%. Post fatty meal symptoms: None. IMPRESSION: 1. Normal HIDA scan. 2. Normal gallbladder ejection fraction.
== END 2023-04-22 09:39 | disposition home or self-care (01) ==
LOC: RAD 09:38
PROVIDERS: PCP Internal Medicine; Visit Provider Internal Medicine
DX: R10.11 Right upper quadrant pain (principal)
CPT/HCPCS: 78227; A9537

== ENCOUNTER → 2023-07-27 10:30 | Outpatient (BNVA) | payer MEDICARE, SELFPAY | PROVIDERS: PCP Internal Medicine; Visit Provider Podiatrist Foot & Ankle Surgery | DX: E08.43 Diabetes mellitus due to underlying condition with diabetic autonomic (poly)neuropathy (principal); L84 Corns and callosities; B35.1 Tinea unguium; R23.4 Changes in skin texture; Z79.4 Long term (current) use of insulin; Z79.84 Long term (current) use of oral hypoglycemic drugs | CPT/HCPCS: 11056; 11721 ==

== ENCOUNTER → 2023-10-26 11:01 | Outpatient (BNVA) | payer MEDICARE, SELFPAY | PROVIDERS: PCP Electrodiagnostic Medicine; Visit Provider Podiatrist Foot & Ankle Surgery | DX: E08.43 Diabetes mellitus due to underlying condition with diabetic autonomic (poly)neuropathy (principal); L84 Corns and callosities; B35.1 Tinea unguium; R23.4 Changes in skin texture; Z79.84 Long term (current) use of oral hypoglycemic drugs; Z79.4 Long term (current) use of insulin | CPT/HCPCS: 11055; 11721 ==

== ENCOUNTER → 2023-10-27 07:27 | Outpatient (BNVA) | payer MEDICARE, SELFPAY | PROVIDERS: PCP Electrodiagnostic Medicine; Visit Provider Specialist | DX: M17.11 Unilateral primary osteoarthritis, right knee (principal); M25.561 Pain in right knee | CPT/HCPCS: 73560; 73565 ==

== ENCOUNTER 2023-10-27 11:45 | Outpatient (CLI) | payer MEDICARE, SELFPAY | END 2023-10-27 11:46 | disposition home or self-care (01) | LOC: SPT 11:46 | PROVIDERS: PCP Electrodiagnostic Medicine; Visit Provider Specialist | DX: Z46.89 Encounter for fitting and adjustment of other specified devices (principal); M25.561 Pain in right knee; M17.11 Unilateral primary osteoarthritis, right knee | CPT/HCPCS: 97760; L1851 ==

== ENCOUNTER → 2024-02-29 10:46 | Outpatient (BNVA) | payer MEDICARE, SELFPAY | PROVIDERS: PCP Electrodiagnostic Medicine; Visit Provider Podiatrist Foot & Ankle Surgery | DX: E08.43 Diabetes mellitus due to underlying condition with diabetic autonomic (poly)neuropathy (principal); L84 Corns and callosities; B35.1 Tinea unguium; R23.4 Changes in skin texture; Z79.4 Long term (current) use of insulin; Z79.84 Long term (current) use of oral hypoglycemic drugs | CPT/HCPCS: 11056; 11721 ==

== ENCOUNTER → 2024-03-13 13:44 | Outpatient (BNVA) | payer MEDICARE, SELFPAY | PROVIDERS: PCP Electrodiagnostic Medicine; Visit Provider Internal Medicine | DX: E78.5 Hyperlipidemia, unspecified (principal); E11.9 Type 2 diabetes mellitus without complications; I10 Essential (primary) hypertension; I48.91 Unspecified atrial fibrillation; Z79.01 Long term (current) use of anticoagulants; Z79.84 Long term (current) use of oral hypoglycemic drugs | CPT/HCPCS: 99213 ==

== ENCOUNTER → 2024-06-27 10:33 | Outpatient (BNVA) | payer MEDICARE, SELFPAY | PROVIDERS: PCP Electrodiagnostic Medicine; Visit Provider Podiatrist Foot & Ankle Surgery | DX: E08.43 Diabetes mellitus due to underlying condition with diabetic autonomic (poly)neuropathy (principal); L84 Corns and callosities; B35.1 Tinea unguium; R23.4 Changes in skin texture; Z79.84 Long term (current) use of oral hypoglycemic drugs; Z79.4 Long term (current) use of insulin | CPT/HCPCS: 11056; 11721 ==

== ENCOUNTER 2024-07-06 07:23 | Outpatient (CLI) | payer MEDICARE, SELFPAY ==
--- NOTE | 2024-07-06 07:28 | CT_ITS ---
WS: [id number] CT ABDOMEN AND PELVIS WITH AND WITHOUT CONTRAST HISTORY: ABDOMINAL PAIN, history of pancreatic cancer. LEFT upper quadrant pain. TECHNIQUE: Unenhanced 5 mm axial imaging first performed through the abdomen. Post contrast imaging through the abdomen and pelvis. Oral contrast has been provided. Sagittal and coronal reformats are submitted. All CT scans at [facility] use at least one of these dose optimization techniques: automated exposure control; mA and/or kV adjustment per patient size (includes targeted exams where dose is matched to clinical indication); or iterative reconstruction. CONTRAST: Omnipaque 350; 95 mL IV. DLP: 1522.29 mGy.cm COMPARISON: 12/09/2022 No pulmonary nodules at the lung bases. Small hiatal hernia. Normal size liver and spleen. Splenic granulomata. There is a tiny focus in the gallbladder consistent with a small calcification. Pancreatic head is normal size. The pancreatic body is small. This is not a new finding. No adrenal mass. Both kidneys are normal size. Multiple cortical hypodensities, greater number on the LEFT. The largest renal cyst on the LEFT measures 3.1 cm. Refute smaller cortical hypodensities which cannot be fully characterized due to their size. Nonobstructing 2 mm calcification lower pole RIGHT kidney. Atherosclerosis aorta. Normal enhancement SMA and celiac axis. Stomach is mildly distended. No small bowel obstruction. Normal appendix. No colon obstruction. No acute colitis identified. There is slight distal colon wall thickening which is probably due to under distention. Small celiac axis lymph node 12 mm slightly decreased in size since 12/09/2022. No adenopathy or mesenteric deposits. No free fluid. Urinary bladder is minimally distended. Minimal distention resulting in mild diffuse wall thickening and prominence. No enhancing mass. Bilateral inguinal canal hernias containing fat only. Small injection sites in the anterior abdominal wall fat. LEFT subcutaneous injection site contains calcifications. Interval repair of the LEFT lateral abdominal wall hernia. Postsurgical changes are now present with an area of fat necrosis which is often seen postsurgically. Bilateral SI joint narrowing and partial fusion. No destructive bone lesions. CT/CT abdomen pelvis wo/w [address] IMPRESSION: 1. No ascites or metastatic disease in the abdomen or pelvis. 2. No LEFT upper quadrant abnormality. 3. Diffuse atrophy of the pancreatic body and tail is stable. Patient did prov aman a history of prior pancreatic surgery. 4. Subcutaneous soft tissue opacifications in the anterior abdominal wall, mor e focal on the LEFT and some associated calcifications. These are probably prio r injection sites. 5. Tiny focus in the gallbladder is probably a small gallstone. 6. Small hiatal hernia. 7. Interval repair of the LEFT spigelian hernia.
[2024-07-06] MEDS: iohexol 350 mg/mL 500 mL Btl (per mL) PO (09:22)
[2024-07-06 09:27] LABS: Blood Urea Nitrogen 7 mg/dL (8-23)
[2024-07-06] MEDS: iohexol 350 mg/mL 500 mL Btl (per mL) IV (09:37)
== END 2024-07-06 07:24 | disposition home or self-care (01) ==
PROVIDERS: PCP Electrodiagnostic Medicine; Visit Provider Electrodiagnostic Medicine
DX: R10.9 Unspecified abdominal pain (principal); K86.89 Other specified diseases of pancreas; Z98.890 Other specified postprocedural states; M79.89 Other specified soft tissue disorders; K44.9 Diaphragmatic hernia without obstruction or gangrene; D73.89 Other diseases of spleen; N28.1 Cyst of kidney, acquired; N28.89 Other specified disorders of kidney and ureter; I70.0 Atherosclerosis of aorta; R93.3 Abnormal findings on diagnostic imaging of other parts of digestive tract; R59.0 Localized enlarged lymph nodes; R93.49 Abnormal radiologic findings on diagnostic imaging of other urinary organs; K40.20 Bilateral inguinal hernia, without obstruction or gangrene, not specified as recurrent; R93.5 Abnormal findings on diagnostic imaging of other abdominal regions, including retroperitoneum; M46.1 Sacroiliitis, not elsewhere classified
CPT/HCPCS: 74178; 82565; 84520

== ENCOUNTER → 2024-10-17 10:38 | Outpatient (BNVA) | payer MEDICARE, SELFPAY | PROVIDERS: PCP Electrodiagnostic Medicine; Visit Provider Podiatrist Foot & Ankle Surgery | DX: E11.8 Type 2 diabetes mellitus with unspecified complications (principal); B35.1 Tinea unguium; E11.43 Type 2 diabetes mellitus with diabetic autonomic (poly)neuropathy; Z79.84 Long term (current) use of oral hypoglycemic drugs | CPT/HCPCS: 11721 ==

== ENCOUNTER 2024-11-09 08:29 | Outpatient (CLI) | payer MEDICARE, SELFPAY ==
--- NOTE | 2024-11-09 08:34 | FL_ITS ---
WS: [id number] FL barium swallow modifd 00677 REASON FOR EXAM: Other dysphagia FLUOROSCOPY TIME: 2min [id number] TECHNIQUE: Examination was supervised by the speech therapy department. The patient was examined in the sitting upright lateral projection. The swallowing of barium of varying consistencies was was monitored fluoroscopically and video recorded. # OF SPOT FILMS: 0 FINDINGS: No aspiration. Thin contrast penetration of the laryngeal vestibule. Distal esophagus wasn't dilated routine of the more barium feedings. There appeared to be an irregular narrowing of the distal esophagus. FL/FL barium swallow modifd 75834 IMPRESSION: A detailed report of the swallowing will be rendered by the speech therapy depa rtment. Contrast penetration into the laryngeal vestibule without aspiration. Abnormality of the distal esophagus which could be neoplastic. A formal esophag carlos is recommended.
== END 2024-11-09 08:30 | disposition home or self-care (01) ==
LOC: RAD 08:30
PROVIDERS: PCP Electrodiagnostic Medicine; Visit Provider Electrodiagnostic Medicine
DX: R13.12 Dysphagia, oropharyngeal phase (principal)
CPT/HCPCS: 74230; 92611

== ENCOUNTER 2024-11-20 08:15 | Outpatient (CLI) | payer MEDICARE, SELFPAY ==
--- NOTE | 2024-11-20 08:20 | FL_ITS ---
WS: [id number] Barium swallow and esophagram, 11/20/2024 Clinical Data: OROPHARYGEAL DYSPHAGIA Comparison: None. Fluoroscopy time: 0min [id number] # of spot films: 44 Findings: The patient swallowed the thick and thin barium, and it flowed through the hypopharynx without hesitation. No stricture, mass, polyp or erosion was seen. No aspiration or penetration was seen. The barium entered the esophagus and there was an enlarged proximal esophagus. Distally there was 5 cm of narrowing with irregularity. The barium then passed into the stomach. No fistula or extravasation of the barium was seen. FL/FL barium swallow 36290 Impression: 1. Dilatation of proximal esophagus with poor motility. 2. 5 cm irregularity and narrowing of distal esophagus just which could be due to an esophageal tumor or chronic esophagitis. 3. Recommend EGD.
== END 2024-11-20 08:16 | disposition home or self-care (01) ==
LOC: RAD 08:16
PROVIDERS: PCP Electrodiagnostic Medicine; Visit Provider Electrodiagnostic Medicine
DX: R13.12 Dysphagia, oropharyngeal phase (principal)
CPT/HCPCS: 74220

== ENCOUNTER 2024-12-27 09:41 | Oncology outpatient (recurring) (ONCR) | payer MEDICARE, SELFPAY ==
[2024-12-27 11:08] LABS: Hematocrit 44.3 % (37-53); Hemoglobin 15.20 g/dL (11.27-16.99); Mean Corpuscular HGB Conc 34.3 g/dL (30-55); Mean Corpuscular Hemoglobin 32.1 pg (27-33); Mean Corpuscular Volume 93.7 fl (82-101); Nucleated Red Blood Cells % 0 %; Platelet Count 233 10^3/cmm (157-399); Red Blood Count 4.73 10^6/uL (3.85-5.65); White Blood Count 5.81 10^3/uL (3.29-11.43)
[2024-12-27 11:44] LABS: Alanine Aminotransferase 15 U/L (0-41); Albumin Level 4.0 g/dL (3.5-5.2); Alkaline Phosphatase 64 U/L (40-130); Anion Gap 18.7 (5-19); Aspartate Amino Transferase 18 U/L (0-40); Blood Urea Nitrogen 16 mg/dL (8-23); Calcium 9.5 mg/dL (8.5-10.5); Carbon Dioxide 23 mmol/L (22-29); Chloride 99 mmol/L (98-107); Creatinine Clr Calc Pharmacy 95.1726; Ferritin 273 ng/mL (30-400); Globulin 2.8 g/dL (1.3-4.6); Glucose 244 mg/dL (65-115); Osmolality Calculated 293 mOsm/kg (285-295); Potassium 3.7 mmol/L (3.5-5.1); Sodium 137 mmol/L (136-145); Total Protein 6.8 g/dL (6.6-8.7)
[2024-12-27 11:49] LABS: Prostate Specific Antigen < 0.014 ng/mL (0-4)
== END 2025-01-02 23:59 | disposition home or self-care (01) ==
PROVIDERS: PCP Electrodiagnostic Medicine; Visit Provider Internal Medicine
DX: K22.89 Other specified disease of esophagus (principal); R13.10 Dysphagia, unspecified; R63.4 Abnormal weight loss; E11.9 Type 2 diabetes mellitus without complications; R60.9 Edema, unspecified; Z85.46 Personal history of malignant neoplasm of prostate
CPT/HCPCS: 36415; 80053; 82728; 82746; 84153; 85025; 99205

== ENCOUNTER 2025-01-04 09:53 | Emergency (ER) | payer MEDICARE, SELFPAY ==
--- OUTSIDE RECORDS SUMMARY | 2024-12-26 08:30 | XMS_ITS ---
Author Organization [facility] Address [address] [place] [address] Care Team Providers Care Biology Faculty Member Name Role Phone Cortez Amaya DO Primary Care Provider Unavail able Lindsey Vergara Unavailable [phone] Keerthi Demarco Unavailable [phone] REASON FOR VISIT Abnormal barium swallow Medications Medication SIG (Take, Route, Frequency, Duration) Notes Start Date End Date Status Metoprolol Tartrate 50 MG Tablet 1 tablet with food Orally Twice a day Active FreeStyle Test - Strip as directed In Vitro Active Insulin Aspart 100 UNIT/ML Solution Pen-injector as directed Subcutaneous Active metFORMIN HCl 500 MG Tablet 1 tablet with a meal Orally Once a day Active Lisinopril 10 MG Tablet 1 tablet Orally Once a day Active Pantoprazole Sodium 40 MG Tablet Delayed Release 1 tablet 1/2 to 1 hour before morning meal Orally twice a day Active Simvastatin 80 MG Tablet 1 tablet in the evening Orally Once a day Active Digoxin 250 MCG Tablet 1 tablet Orally Once a day Active Carafate 1 GM Tablet 1 tablet on an empt y stomach Orally 4 times a day Active Eliquis 5 MG Tablet as directed Orally Active Encounters Encounter Location Date Provider Diagnosis [facility] [address] [place] [address] 12/26/2024 Keerthi Demarco Plan Of Treatment No Information Progress Notes * Ayaan STANLEY LDOB: [birth year] (74 yo M)Acc No.[id number]:12/26/2024 History and Physical Patient: Ayaan Kennedy Provider: Karla Demarco MD :1950 A ge:74 Y S ex:Male Date:12/26/2024 Address:[address] [place], [place] [id number] Pcp:Cortez Amaya DO 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 Subjective: * Chief Complaints: * A bnormal barium swallow * Medications: T akingCarafate 1 GM Tablet 1 tablet on an empty stomach Orally 4 times a day Digoxin 250 MCG Tablet 1 tablet Orally Once a day Eliquis 5 MG Tablet as directed Orally FreeStyle Test - Strip as directed In Vitro Insulin Aspart 100 UNIT/ML Solution Pen-injector as directed Subcutaneous Lisinopril 10 MG Tablet 1 tablet Orally Once a day metFORMIN HCl 500 MG Tablet 1 tablet with a meal Orally Once a day Metoprolol Tartrate 50 MG Tablet 1 tablet with food Orally Twice a day Pantoprazole Sodium 40 MG Tablet Delayed Release 1 tablet 1/2 to 1 hour before morning meal Orally twice a day Simvastatin 80 MG Tablet 1 tablet in the evening Orally Once a day Taking Carafate 1 GM Tablet 1 tablet on an empty stomach Orally 4 times a day Taking Digoxin 250 MCG Tablet 1 tablet Orally Once a day Taking Eliquis 5 MG Tablet as directed Orally Taking FreeStyle Test - Strip as directed In Vitro Taking Insulin Aspart 100 UNIT/ML Solution Pen-injector as directed Subcutaneous Taking Lisinopril 10 MG Tablet 1 tablet Orally Once a day Taking metFORMIN HCl 500 MG Tablet 1 tablet with a meal Orally Once a day Taking Metoprolol Tartrate 50 MG Tablet 1 tablet with food Orally Twice a day Taking Pantoprazole Sodium 40 MG Tablet Delayed Release 1 tablet 1/2 to 1 hour before morning meal Orally twice a day Taking Simvastatin 80 MG Tablet 1 tablet in the evening Orally Once a day Billing Information: * Procedure Codes: * Electronic signature of Steven Demarco MD on 01/04/2025 at 09:59 AM CDT Sign off status: Pending * Provider: Karla Demarco MD Date: 0 12/26/2024 Generated for Rex logan/Olga/Mariama on: 09:59 AM CDT
[2025-01-04] VITALS (14 sets, daily range): BP systolic 129–182; BP diastolic 60–94; PULSE 63–70; RESP 16; TEMP 36.7; O2SAT 94–100; BMI 27.1
--- OUTSIDE RECORDS SUMMARY | 2025-01-04 09:59 | XMS_ITS | Encounter Summary ---
Author Organization [facility] Address [address] [place] [address] Care Team Providers Care Manipulative Therapy Specialist Name Role Phone Bruce Verdin DO Primary Care Provide r Encounter Details Date Type Department Care Team (Late Contact Info) Description 01/01/2025 Orders Only [facility] Endocrinology [facility] [address] [facility] [address] [place] [address] Yasmany Shaikh PA [address] 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 [employer], [place] [id number] documented as of this encounter Visit Diagnoses Diagnosis Type 2 diabetes mellitus with insulin therapy Type II or unspecified type diabetes mellitus without mention of complication, not stated as uncontrolled documented in this encounter Care Teams Manipulative Therapy Specialist Relationship Specialty Start Date End Date Bruce Verdin DO [address] [address] PCP - General Internal Medicine 06/11/23 documented as of this encounter
--- OUTSIDE RECORDS SUMMARY | 2025-01-04 09:59 | XMS_ITS | Patient Health Record ---
Author Organization [facility] Address [address] [place] [address] Care Team Providers Care Automatic Maintainer Name Role Phone Cortez Amaya DO Primary Care Provider Unavail able Lindsey Vergara Unavailable [phone] Keerthi Demarco Unavailable [phone] Allergies Allergen (clinical drug ingredient) Drug/Non Drug Allergy documented on EMR Reaction Allergy Type Onset Date Status No Known Drug Allergy Unknown Drug Allergy Active Results Component Value Reference Range Flag Notes Glucometer WBG--[id number] Reviewed date:12/26/2024 12:37:34 PM Interpretation: Performing Lab: Notes/Report: Glucometer WBG 267 65-110 MG/DL HI ANESTHES IA NOTIFIED~Meter: [id number]~Counter Weigher: [id number] VIRGILIO ALEXANDER Glucometer WBG--[id number] Reviewed date:12/26/2024 04:04:02 PM Interpretation: Performing Lab: Notes/Report: Glucometer WBG 226 65-110 MG/DL HI Meter: U [id number]~Counter Weigher: [id number] [facility], Upper GI Diagnostic-432 35 (Not yet reviewed by provider) Interpretation: Performing Lab: Notes/Report: Glucometer WBG--[id number] Reviewed date:12/26/2024 12:37:34 PM Interpretation: Performing Lab: Notes/Report: Glucometer WBG 250 65-110 MG/DL HI INSULIN GIVEN~Meter: [id number]~Counter Weigher: [id number] NADIA GARCIA Reason For Referral Reason URGENT MED ONC & PET -CT scan - skull to mid-thigh needed Diagnosis 1 Esophageal mass (K22 .89) Referral Organization [facility] Referring Provider First Name Keerthi Referring Provider Last Name Dav Referring Provider Speciality Meg leyva Referred Provider [facility] Referred Provider Specialty Oncology General Notes Princess Crow 02:05:31 PM CDT > Urgent referrral faxed to [facility] (ph #[phone] / fax #[phone]), Princess Crow 12/28/2024 10:55:06 AM CDT > Spoke with [facility]- pt was seen there yesterday & a consult note will be faxed as soon as its completed Referral Priority Urgent Medications Medication SIG (Take, Route, Frequency, Duration) Notes Start Date End Date Status Pantoprazole Sodium 40 MG Tablet Delayed Release 1 tablet 1/2 to 1 hour before morning meal Orally twice a day Active Metoprolol Tartrate 50 MG Tablet 1 tablet with food Orally Twice a day Active Simvastatin 80 MG Tablet 1 tablet in the evening Orally Once a day Active Digoxin 250 MCG Tablet 1 tablet Orally Once a day Active Carafate 1 GM Tablet 1 tablet on an empt y stomach Orally 4 times a day Active FreeStyle Test - Strip as directed In Vitro Active Eliquis 5 MG Tablet as directed Orally Active Insulin Aspart 100 UNIT/ML Solution Pen-injector as directed Subcutaneous Active metFORMIN HCl 500 MG Tablet 1 tablet with a meal Orally Once a day Active Lisinopril 10 MG Tablet 1 tablet Orally Once a day Active Social History Tobacco Use: Social History Observation Description Date Details (start date - stop date) Never Smoker NA - NA Social History Tobacco Use: Social Info Question Answer Notes Tobacco Control (Standard) Tobacco use: Nonsmoker Additional Details Category Social Info Options Details Drugs/Alcohol: Do you smoke marijuana? Ad mits Do you drink alcohol? No Problems Problem Type SNOMED Code ICD Code Onset Dates Problem Status W/U Status Risk Notes Problem Gastro-esophageal reflux disease without esophagitis (520083388) Gastro-esophag eal reflux disease without esophagitis (K21.9) Active confirmed Problem Stricture of esophagus (05631728) Esophageal obstruction (K22.2) Active confirmed Problem Dysphagia (32938060) Dysphagia, unspecified (R13.10) Active confirmed Problem Gastroesophageal reflux disease (disorder) (027992001) Chronic GERD (K21.9) Active confirmed Problem Dysphagia (72016259) Dysphagia (R13.10) Active confirmed Problem Malignant neoplasm of lower third of esophagus (316621418) 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 Vital Signs Heart Rate 76 /min 12/18/2024 Temperature 97 degrees Fahrenheit 12/18/2024 Height-cm 177.8 cm 12/18/2024 Oximetry 100 % 12/18/2024 Blood pressure diastolic 60 mm Hg 12/18/2024 Weight-kg 91.17 kg 12/18/2024 Height 70 in 12/18/2024 Blood pressure systolic 118 mm Hg 12/18/2024 Weight 201 lbs 12/18/2024 BMI 28.84 kg/m2 12/18/2024 Encounters Encounter Location Date Provider Diagnosis [facility] [address] [place] [address] 12/26/2024 [facility] [address] [place] [address] 12/18/2024 Lindsey Vergara Chronic GERD K21.9 ; Abnormal barium swallow R93.3 ; Dysphagia R13.10 ; Chronic constipation K59.09 and Left upper quadrant abdominal pain R10.12 [facility] [address] [place] [address] 12/18/2024 [facility] [address] [place] [address] 12/18/2024 [facility] [address] [place] [address] 12/26/2024 [facility] [address] [place] [address] 12/22/2024 [facility] Assessments Encounter Date Diagnosis (ICD Code) Assessment Notes Treatment Notes Treatment Clinical Notes Section Notes 12/18/2024 Chronic GERD (ICD-10 - K21.9) Continue PPI and carafate as ordered. Recommend strict reflux precautions. 12/18/2024 Abnormal barium swallow (ICD-10 - R93.3) Fluoroscopy barium swallow from 11/20/2024 and [facility] in [place] shows dilation of the proximal esophagus with poor motility. There is a 5 cm irregularity and narrowing of the distal esophagus which could be due to an esophageal tumor or chronic esophagitis. An EGD is recommended. Recommend EGD for further evaluation with endoscopic intervention as indicated. EGD procedure, risks, benefits, potential complications, and potential interventions discussed. Questions answered to apparent satisfaction. Verbalizes understanding. Desires to proceed with the proposed plan. Schedule EGD Advised to avoid any OTC supplements, NSAIDs, and aspirin 3 days prior to endoscopy.Hold Eliquis for 3 days prior to endoscopy. Obtain cardiac clearance from Dr. Robins at [facility]. Follow-up to be arranged based on endoscopy findings and interventions Recommend strict reflux precautions Continue PPI as prescribed. 12/18/2024 Dysphagia (ICD-10 - R13.10) EGD ordered. 12/18/2024 Chronic constipation (ICD-10 - K59.09) Recommend the patient start to use miralax daily and as needed for contipation symptoms. Recommend increased water intake and physical activity as tolerated. Follow up in the clinic as needed. 12/18/2024 Left upper quadrant abdominal pain (ICD-10 - R10.12) CT of the abdomen pelvis from 07/06/2024 at [facility] in [place] shows no ascites or metastatic disease in the abdomen or pelvis. No left upper quadrant abnormality. Diffuse atrophy of the pancreatic body and tail is stable. The patient did not provide a history of prior prostate surgery. Subcutaneous soft tissue opacifications in the anterior abdominal wall, more focal on the left and some associated calcifications. These are probably prior injection sites. Tiny focus in the gallbladder is probably a small stone. There is a small hiatal hernia. There has been interval repair of the left spigelian hernia. Plan Of Treatment Pending Test Test Name Order Date EGD, Upper GI Diagnostic-[id number] 5 Insurance Providers Payer Name Payer Address Payer Phone Subscriber Number Group Number Insured Name Patient Relationship to Insured Coverage Start Date Coverage End Date [facility] Medicare Advantage PPO [address] [address] [place] [address] [phone] [id number] Ayaan Stanley Self - patient is the insured Medical (General) History Medical History History ICD Code Heart Disease Diabetes prostate cancer kidney stones GERD Surgical History Surgery Date(Month/Year) blasting kidney stones carpol andreina left prostate removed 2020 Hospitalization History Reason Date(Month/Year) see surg hx
--- OUTSIDE RECORDS SUMMARY | 2025-01-04 09:59 | XMS_ITS | Encounter Summary ---
Author Organization [facility] Address [address] [place] [address] Care Team Providers Care Trash Truck Driver Name Role Phone Non-Staff, Physician Primary Care Provider Unava ilable Reason for Visit * Reason Onset Date Comments Information 01/04/2018 Encounter Details Date Type Department Care Team (Late st Contact Info) Description 01/04/2018 Telephone [facility] [address] [place] [address] Yasmany Shaikh PA [address] [place], [place] [id number] Information Social History Tobacco Use Types Packs/Day Years Used Date Smoking Tobacco: Never Smokeless Tobacco: Never Alcohol Use Standard Drinks/Week Comments No 0 (1 standard drink = 0.6 oz pur e alcohol) Sex and Gender Information Value Date Recorded Sex Assigned at Not on file Legal Sex Male 3:12 AM 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
--- OUTSIDE RECORDS SUMMARY | 2025-01-04 09:59 | XMS_ITS | Clinical Summary ---
Author Organization [facility] tone Address [address] [place] [address] Care Team Providers Care Water/Wastewater Project Engineer Name Role Phone VerdinBruceiel Primary Care Provide r Allergies No known active allergies Medications blood sugar diagnostic Strip USE 1 STRIP TO CHECK GLUCOSE 4 TIMES DAILY (DX E11.65) 400 Each 3 06/15/19 21 Active flash glucose scanning reader (FreeStyle Felipe 2 [place]) [facility] Use as directed 1 Each 0 09/20/19 21 Active flash glucose sensor (FreeStyle Felipe 2 Sensor) Kit Place 1 new sensor on clean dry arm every 14 days. 2 Kit 6 09/20/19 21 Active solifenacin (VESICARE) 5 mg Tablet TAKE 1 TABLET BY MOUTH AT BEDTIME FOR 90 DAYS 09/07/19 21 Active digoxin (LANOXIN) 250 mcg (0.25 mg) tablet Take 250 mcg by mouth daily. Active metoprolol tartrate (LOPRESSOR) 50 mg tablet Take 25 mg by mouth daily. Active simvastatin (ZOCOR) 80 mg tablet Take 80 mg by mouth late in the day. Active Insulin [place], Disposable, 31 gauge x 5/16 Needle USE DIRECTED FOR INJECTONS FIVE TIMES DAILY 200 Each 2 05/20/19 24 Active apixaban (Eliquis) 5 mg tablet Active lisinopriL (PRINIVIL) 10 mg tablet Take 1 Tablet (10 mg) by mouth daily. 100 Tablet 3 09/24/19 24 Active metFORMIN (GLUCOPHAGE XR) 500 mg Extended Release 24 hour tablet TAKE 2 TABLETS TWICE A DAY 360 Tablet 3 09/27/19 25 Active sucralfate (CARAFATE) 1 gram tablet Take 1 Gram by mouth 4 times daily before meals and at bedtime. Active pantoprazole (PROTONIX) 40 mg Tablet, Delayed Release (E.C.) Take 40 mg by mouth daily. Take 40mg by mouth 2 x day Active insulin glargine (Lantus Solostar U-100 Insulin) 100 unit/mL pen syringe Inject 50 Units by subcutaneous injection daily at bedtime. 45 mL 1 12/25/19 25 Active insulin lispro (HumaLOG KwikPen Insulin) 100 unit/mL pen syringeIndicatio ns:Type 2 diabetes mellitus with insulin therapy 15 units with meals plus sliding scale. Max dose 80 units 30 mL 2 01/02/20 25 Active insulin regular human U-500 concentrated (HumuLIN-R U-500, Conc, Kwikpen) 500 unit/mL (3 mL) pen DIAL KWIKPEN TO 130 UNITS AND INJECT UNDER THE SKIN IN THE MORNING, 100 UNITS AT NOON, 135 UNITS IN THE EVENING. 66 mL 3 09/27/19 25 025 Discontinu ed(Alterna te therapy prescribed ) insulin glargine (Lantus Solostar U-100 Insulin) 100 unit/mL pen syringe Inject 50 Units by subcutaneous injection daily at bedtime. 45 mL 1 12/08/19 25 025 Discontinu ed(Reorder ) insulin aspart U-100 (NovoLOG Flexpen U-100 Insulin) 100 unit/mL pen syringe 15 units with meals plus sliding scale. Max dose 80 units 45 mL 1 12/08/19 25 025 Discontinu ed(Reorder ) insulin aspart U-100 (NovoLOG Flexpen U-100 Insulin) 100 unit/mL pen syringe 15 units with meals plus sliding scale. Max dose 80 units 45 mL 1 12/08/19 25 025 Discontinu ed(Formula ry Change) insulin glargine (Lantus Solostar U-100 Insulin) 100 unit/mL pen syringe Inject 50 Units by subcutaneous injection daily at bedtime. 45 mL 1 12/08/19 25 025 Discontinu ed(Reorder ) insulin lispro (HumaLOG KwikPen Insulin) 100 unit/mL pen syringeIndicatio ns:Type 2 diabetes mellitus with insulin therapy 15 units with meals plus sliding scale. Max dose 80 units 15 mL 2 12/12/19 25 025 Discontinu ed(Reorder ) insulin lispro (HumaLOG KwikPen Insulin) 100 unit/mL pen syringeIndicatio ns:Type 2 diabetes mellitus with insulin therapy 15 units with meals plus sliding scale. Max dose 80 units 30 mL 2 12/20/19 25 025 Discontinu ed(Reorder ) insulin lispro (HumaLOG KwikPen Insulin) 100 unit/mL pen syringeIndicatio ns:Type 2 diabetes mellitus with insulin therapy 15 units with meals plus sliding scale. Max dose 80 units 30 mL 2 12/22/19 25 025 Discontinu ed(Reorder ) insulin lispro (HumaLOG KwikPen Insulin) 100 unit/mL pen syringeIndicatio ns:Type 2 diabetes mellitus with insulin therapy 15 units with meals plus sliding scale. Max dose 80 units 30 mL 2 12/25/19 25 025 Discontinu ed(Reorder ) insulin lispro (HumaLOG KwikPen Insulin) 100 unit/mL pen syringeIndicatio ns:Type 2 diabetes mellitus with insulin therapy 15 units with meals plus sliding scale. Max dose 80 units 30 mL 2 12/26/19 25 025 Discontinu ed(Reorder ) Active Problems Problem Noted Date Diagnosed Date Type 2 diabetes mellitus wit h hyperglycemia, with long-term current use of insulin 07/01/2017 Pure hyperglyceridemia 10/11/2015 Type 2 diabetes mellitus with insulin therapy Tobacco abuse 01/28/2015 Type 2 diabetes mellitus, uncontrolled 1 Hyperlipidemia 05/13/2010 Atrial fibrillation 05/13/2010 Encounters Date Type Department Care Team Description 01/01/2025 Orders Only [facility] [address] [place] [address] Yasmany Shaikh PA Type 2 diabetes mellitus with insulin therapy ([facility]) 12/25/2024 Orders Only [facility] [address] [place] [address] Yasmany Shaikh PA Type 2 diabetes mellitus with insulin therapy ([facility]) 12/24/2024 Orders Only [facility] [address] [place] [address] Yasmany Shaikh PA Type 2 diabetes mellitus with insulin therapy ([facility]) 12/21/2024 Orders Only [facility] [address] [place] [address] Anupama Gonzalez Type 2 diabetes mellitus with insulin therapy ([facility]) 12/19/2024 External Device Data STL ABSTRACTION Provider, Abstract 12/19/2024 Orders Only [facility] [address] [place] [address] Yasmany Shaikh PA Type 2 diabetes mellitus with insulin therapy ([facility]) 12/11/2024 Orders Only [facility] [address] [place] [address] Anupama Gonzalez Type 2 diabetes mellitus with insulin therapy ([facility]) (Primary Dx) 12/07/2024 2:45 PM CDT Office Visit [facility] [address] [place] [address] Yasmany Shaikh PA Type 2 diabetes mellitus with insulin therapy ([facility]) (Primary Dx); Essential hypertension; Mixed hyperlipidemia 12/07/2024 Refill [facility] [address] [place] [address] Yasmany Shaikh PA 12/05/2024 External Device Data STL ABSTRACTION Provider, Abstract 12/01/2024 9:00 AM CDT Clinical Support [facility] [place] [address] [place] [id number] Type 2 diabetes mellitus with insulin therapy ([facility]) 11/08/2024 External Device Data STL ABSTRACTION Provider, Abstract 10/18/2024 External Device Data STL ABSTRACTION Provider, Abstract 10/17/2024 External Device Data STL ABSTRACTION Provider, Abstract from Last 3 Months Family History Medical History Relation Name Comments Heart Disease Brother Stroke Father Heart Disease Mother Relation Name Status Comments Brother (Age 54) [place] Father (Age 57) stroke Mother Social History Tobacco Use Types Packs/Day Years Used Date Smoking Tobacco: Never Smokeless Tobacco: Never Tobacco Cessation:Counseling Given: Not Answered Alcohol Use Standard Drinks/Week Comments No 0 (1 standard drink = 0.6 oz pur e alcohol) Sex and Gender Information Value Date Recorded Sex Assigned at Not on file Legal Sex Male 4:10 PM COAT CHECK ATTENDANT Gender Identity Not on file Sexual Orientation Not on file Last Filed Vital Signs Vital Sign Reading Time Taken Comments Blood Pressure 130/80 12/07/2024 2:25 PM CDT Pulse 70 12/07/2024 2:25 PM CDT Temperature - - Respiratory Rate - - Oxygen Saturation 98% 12/07/2024 2:25 PM CDT Inhaled Oxygen Concentration - - Weight 97.1 kg (214 lb) 12/07/2024 2:25 PM CDT Height 180.3 cm (5' 11 ) 12/07/2024 2:25 PM CDT Body Mass Index 29.85 12/07/2024 2:25 PM CDT Plan of Treatment Upcoming Encounters Date Type Department Care Team (Late st Contact Info) Description 05/16/2025 10:00 AM COAT CHECK ATTENDANT Office Visit [facility] Endocrinology [facility] [address] [phone] Yasmany Shaikh, SEKOU [address] [place] [address] Health Maintenance Due Date Last Done Comments DTAP/TDAP/TD VACCINES (1 - Tdap) 10/13/1971 COLORECTAL SCREENING 1997 Colorectal Cancer Screening 1997 FIT-DNA Q 3 years 1997 FIT/FOBT Q 1 year 1997 Flex Sig/CT Colonography Q 5 years 1997 ZOSTER VACCINE (1 of 2) 2002 RSV VACCINE (60+ or ) (1 - Risk 60-74 years 1-dose series) 2012 Medicare Advantage (MS) Preventative Visit/Annual Wellness Visit 04/05/2024 DIABETES ANNUAL RETINAL EXAM 04/22/2024, 04/15/2022, 04/01/2021, Additional history exists INFLUENZA VACCINE (#1) 2024 COVID-19 Vaccine (2024-2 6 season) 2024 01/31/2021, 07/31/2020, 07/02/2020 DIABETES HBA1C Q 6 MONTHS 06/02/20252024, 06/09/2024, 01/28/2024, Additional history exists DIABETES MICROALBUMIN ANNUAL SCREEN 06/09/2025 06/09/2024, 07/07/2023, 01/08/2023, Additional history exists LDL CHOLESTEROL ANNUAL 12/01/2025 , 06/09/2024, 01/28/2024, Additional history exists DIABETES ANNUAL FOOT EXAM 12/07/20252024, 06/13/2024, 02/03/2024, Additional history exists PNEUMOCOCCAL VACCINE 50+ YEARS Completed 10/20/2022 Procedures Procedure Name Priority Date/Time Associated Diagnosis Comments COMPREHENSIVE METABOLIC PANEL Routine 12/01/2024 9:20 AM CDT Type 2 diabetes mellitus with insulin therapy ([facility]) HEMOGLOBIN A1C Routine 12/01/2024 9:20 AM CDT Type 2 diabetes mellitus with insulin therapy ([facility]) LIPID PANEL Routine 12/01/2024 9:20 AM CDT Type 2 diabetes mellitus with insulin therapy ([facility]) MICROALBUMIN/CREATININ E RATIO, RANDOM UR Routine 06/09/2024 9:18 AM COAT CHECK ATTENDANT Type 2 diabetes mellitus with insulin therapy ([facility]) DIABETES EYE EXAM Routine 04/22/2023 6:20 PM COAT CHECK ATTENDANT from Last 3 Months or Most Recently Relevant to Health Maintenance Results * (ABNORMAL) HEMOGLOBIN A1C (12/01/2024 9:20 AM CDT) HEMOGLOBIN A1C 6.1(H) <5.7 % [facility] Comment: For someone without known diabetes, a hemoglobin A1c value between 5.7% and 6.4% is consistent with prediabetes and should be confirmed with a follow-up test. For someone with known diabetes, a value <7% indicates that their diabetes is well controlled. A1c targets should be individualized based on duration of diabetes, age, comorbid conditions, and other considerations. This assay result is consistent with an increased risk of diabetes. Currently, no consensus exists regarding use of hemoglobin A1c for diagnosis of diabetes for children. ESTIMATED AVERAGE GLUCOSE (MG/DL) 128 mg/dL [facility] ESTIMATED AVERAGE GLUCOSE (MMOL/L) 7.1 mmol/L [facility] Comment: Test Performed at: [facility] [address] [facility] [place] [address] Tabitha Amin MD Blood 12/01/2024 9:20 AM CDT 12/02/2024 5:09 AM CDT us Yasmany SAPP CHEMISTRY ORDERABLES Final R esult [facility] [phone] [facility] [address] [facility] [place] [address] * LIPID PANEL (12/01/2024 9:20 AM CDT) CHOLESTEROL 93 <200 mg/dL [facility] HDL 45 > OR = 40 mg/dL [facility] TRIGLYCERIDE 101 <150 mg/dL [facility] LDL CALCULATED 30 mg/dL (calc) [facility] Comment: Reference range: <100 Desirable range <100 mg/dL for primary prevention; <70 mg/dL for patients with CHD or diabetic patients with > or = 2 CHD risk factors. LDL-C is now calculated using the Natanael-Medina calculation, which is a validated novel method providing better accuracy than the Friedewald equation in the estimation of LDL-C. Natanael SS et al. BECCA. 2013;310(19): 8631-7280 (http://education.Crude Area.EpiCrystals/faq/OEL720) CHOL/HDL RATIO 2.1 <5.0 (calc) [facility] NON-HDL CHOLESTEROL 48 <130 mg/dL (calc) [facility] Comment: For patients with diabetes plus 1 major ASCVD risk factor, treating to a non-HDL-C goal of <100 mg/dL (LDL-C of <70 mg/dL) is considered a therapeutic option. Test Performed at: [facility] [address] [address] Tabitha Amin MD Blood 12/01/2024 9:20 AM CDT 12/02/2024 5:09 AM CDT us Yasmany SAPP CHEMISTRY ORDERABLES Final R esult [facility] [phone] [facility] [address] [phone] * (ABNORMAL) COMPREHENSIVE METABOLIC PANEL (12/01/2024 9:20 AM CDT) GLUCOSE 150(H) 65 - 99 mg/dL [facility] Comment: Fasting reference interval For someone without known diabetes, a glucose value >125 mg/dL indicates that they may have diabetes and this should be confirmed with a follow-up test. BUN 10 7 - 25 mg/dL [facility] CREATININE 0.69(L) 0.70 - 1.28 mg/dL [facility] GFR 98 > OR = 60 mL/min/1.7 3m2 [facility] BUN/CREAT RATIO 14 6 - 22 (calc) [facility] SODIUM 139 135 - 146 mmol/L [facility] POTASSIUM 4.1 3.5 - 5.3 mmol/L [facility] CHLORIDE 101 98 - 110 mmol/L [facility] CO2 27 20 - 32 mmol/L [facility] CALCIUM 9.4 8.6 - 10.3 mg/dL [facility] TOTAL PROTEIN 6.4 6.1 - 8.1 g/dL [facility] ALBUMIN 4.2 3.6 - 5.1 g/dL [facility] GLOBULIN 2.2 1.9 - 3.7 g/dL (calc) [facility] ALBUMIN/GLOBULIN RATIO 1.9 1.0 - 2.5 (calc) [facility] BILIRUBIN TOTAL 1.2 0.2 - 1.2 mg/dL [facility] ALKALINE PHOSPHATASE 50 35 - 144 U/L [facility] AST 26 10 - 35 U/L [facility] ALT 21 9 - 46 U/L [facility] Comment: Test Performed at: [facility] [address] [facility] [place] [address] Tabitha Amin MD Blood 12/01/2024 9:20 AM CDT 12/02/2024 5:09 AM CDT us Yasmany SAPP CHEMISTRY ORDERABLES Final R esult [facility] [phone] [facility] [address] * (ABNORMAL) MICROALBUMIN/CREATININE RATIO, RANDOM UR (06/09/2024 9:18 AM COAT CHECK ATTENDANT) Creatinine, Urine 114 20 - 320 mg/dL [facility] MICROALBUMIN, URINE 5.4 See Note: mg/dL [facility] Comment: Reference Range: Reference Range Not established MICROALBUMIN/CREAT RATIO, UR 47(H) <30 mg/g creat [facility] Comment: The ADA defines abnormalities in albumin excretion as follows: Albuminuria Category Result (mg/g creatinine) Normal to Mildly increased <30 Moderately increased 30-299 Severely increased > OR = 300 The ADA recommends that at least two of three specimens collected within a 3-6 month period be abnormal before considering a patient to be within a diagnostic category. Test Performed at: [facility] [address] [place] [address] Tabitha Amin MD Urine URINE SPECIMEN OBTAINED BY CLEAN CATCH PROCEDURE / Unknown 06/09/2024 9:18 AM COAT CHECK ATTENDANT 06/10/2024 3:53 AM COAT CHECK ATTENDANT us Yasmany SAPP URINE ORDERABLES Final Resul t [facility] [phone] [facility] [address] [address] * DIABETES EYE EXAM (04/22/2023 6:20 PM COAT CHECK ATTENDANT) us Abstract Provider HEALTH MAINTENANCE Final Resul t from Last 3 Months or Most Recently Relevant to Health Maintenance [place] [address] [address] [place] [id number] Care Teams Water/Wastewater Project Engineer Relationship Specialty Start Date End Date Bruce Verdin DO [address] [facility] [address] [place] [address] PCP - General Internal Medicine 06/11/23
--- OUTSIDE RECORDS SUMMARY | 2025-01-04 09:59 | XMS_ITS | Clinical Summary ---
Author Organization [facility] Address [address] [place] [address] Care Team Providers Care Poolroom/Poolhall Manager Name Role Phone Non-Staff, Physician Primary Care Provider Unava ilable Allergies No known active allergies Medications digoxin (LANOXIN) 250 mcg Oral tablet Take 250 mcg by mouth daily. Active simvastatin (ZOCOR) 80 mg Oral tablet Take 80 mg by mouth Daily LATE. Active 0mega-3 fatty acids-vitamin E (FISH OIL) 1,000 mg Oral Cap Take 1,000 mg by mouth 3 times daily. Active dabigatran etexilate (PRADAXA) 150 mg Oral Cap Take by mouth 2 times daily. Active metoprolol tartrate (LOPRESSOR) 50 mg Oral tablet Take 25 mg by mouth daily. Active Insulin Stanley, Disposable, (BD Ultra-Fine Short Pen Needle) 31 gauge x 5/16 Needle USE DIRECTED FOR INJECTONS FIVE TIMES DAILY 200 Each 0 Active insulin regular human U-500 concentrated (HumuLIN R U-500, Conc, Kwikpen) 500 unit/mL (3 mL) penIndications:eleazar SAPP(per blood glucose log DOS 09/27/18-10/06/18) INJECT 160 UNITS SUB-Q AT BREAKFAST , AND 170 UNITS AT LUNCH AND 135 UNITS AT SUPPER 78 mL 0 Active lisinopriL (PRINIVIL) 2.5 mg tablet TAKE 1 TABLET DAILY 90 Tablet 1 1 Active metFORMIN (GLUCOPHAGE XR) 500 mg Extended Release 24 hour tablet TAKE 2 TABLETS TWICE A DAY 360 Tablet 2 1 Active blood sugar diagnostic (OneTouch Ultra Blue Test Strip) Strip USE 1 STRIP TO CHECK GLUCOSE 4 TIMES DAILY (DX E11.65) 400 Each 3 1 Active flash glucose sensor (FreeStyle Felipe 2 Sensor) Kit Place 1 new sensor on clean dry arm every 14 days. 2 Kit 6 1 Active flash glucose scanning reader (FreeStyle Felipe 2 [place]) [facility] Use as directed 1 Each 1 Active Active Problems Problem Noted Date Diagnosed Date Type 2 diabetes mellitus wit h hyperglycemia, with long-term current use of insulin 07/01/2017 Type 2 diabetes mellitus with insulin therapy Pure hyperglyceridemia 10/11/2015 Tobacco abuse 01/28/2015 Type 2 diabetes mellitus, uncontrolled 1 Hyperlipidemia 05/13/2010 Atrial fibrillation 05/13/2010 Family History Medical History Relation Name Comments Heart Disease Brother Stroke Father Heart Disease Mother Relation Name Status Comments Brother (Age 54) MS Father (Age 57) stroke Mother Social History Tobacco Use Types Packs/Day Years Used Date Smoking Tobacco: Never Smokeless Tobacco: Never Alcohol Use Standard Drinks/Week Comments No 0 (1 standard drink = 0.6 oz pur e alcohol) Sex and Gender Information Value Date Recorded Sex Assigned at Not on file 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 Gender Identity Not on file Sexual Orientation Not on file Last Filed Vital Signs Vital Sign Reading Time Taken Comments Blood Pressure 120/70 07/08/2020 1:27 PM CDT Pulse 76 07/08/2020 1:27 PM CDT Temperature - - Respiratory Rate - - Oxygen Saturation - - Inhaled Oxygen Concentration - - Weight 112.5 kg (248 lb) 07/08/2020 1:27 PM CDT Height 180.3 cm (5' 11 ) 07/08/2020 1:27 PM CDT Body Mass Index 34.59 07/08/2020 1:27 PM CDT Plan of Treatment Health Maintenance Due Date Last Done Comments DTAP/TDAP/TD VACCINES (1 - Tdap) 10/13/1971 PNEUMOCOCCAL VACCINE 50+ YEA RS (1 of 2 - PCV) 10/13/1971 COLORECTAL SCREENING 1997 Colorectal Cancer Screening 1997 FIT-DNA Q 3 years 1997 FIT/FOBT Q 1 year 1997 Flex Sig/CT Colonography Q 5 years 1997 ZOSTER VACCINE (1 of 2) 2002 RSV VACCINE (60+ or ) (1 - Risk 60-74 years 1-dose series) 2012 DIABETES ANNUAL FOOT EXAM 05/22/20142013, 05/16/2012, 05/15/2011 DIABETES HBA1C Q 6 MONTHS 01/01/20212020, 03/01/2020, 10/30/2019, Additional history exists DIABETES MICROALBUMIN ANNUAL SCREEN 03/01/2021 03/01/2020, 07/03/2019, 02/27/2019, Additional history exists LDL CHOLESTEROL ANNUAL 03/01/2021 , 10/30/2019, 07/03/2019, Additional history exists DIABETES ANNUAL RETINAL EXAM 03/21/2021, 11/11/2018, 07/14/2017, Additional history exists INFLUENZA VACCINE (#1) 2024 Procedures Procedure Name Priority Date/Time Associated Diagnosis Comments HEMOGLOBIN A1C Routine 07/01/2020 9:05 AM CDT Type 2 diabetes mellitus with hyperglycemia, with long-term current use of insulin ([facility]) HM DIABETES EYE EXAM Routine 03/21/2020 MICROALBUMIN/CREATIN INE RATIO, RANDOM UR Routine 03/01/2020 9:13 AM POULTRY HELPER Type 2 diabetes mellitus with hyperglycemia, with long-term current use of insulin ([facility]) LIPID PANEL Routine 03/01/2020 9:13 AM POULTRY HELPER Type 2 diabetes mellitus with hyperglycemia, with long-term current use of insulin ([facility]) from Last 3 Months or Most Recently Relevant to Health Maintenance Results * (ABNORMAL) HEMOGLOBIN A1C (07/01/2020 9:05 AM CDT) HEMOGLOBIN A1C 6.7(H) See Comment % 07/01/2020 9:13 PM CDT [facility] EST. AVG GLUCOSE, A1C 146 mg/dL 07/01/2020 9:13 PM CDT [facility] Blood Venipuncture / Unknown 07/01/2020 9:05 AM CDT 07/01/2020 8:39 PM CDT Mariya [facility] - 07/01/2020 9:13 PM CDT HGB A1C INTERPRETATION NORMAL: <5.7% PRE-DIABETES: 5.7 - 6.4% DIABETES: 6.5% OR GREATER Falsely low A1C measurements can occur when: 1. Anemia and/or hemolytic anemia is present. 2. Hemoglobin variants present. 3. Renal failure. 4. Transfusion of blood product in the last 120 days. We recommend ordering a fructosamine test([id number]) to more accurately assess glycemic status if any of the above conditions are present. Yasmany SAPP CHEMISTRY ORDERABLES Final R esult [facility] CLIA# [id number] [address] [place] [id number] * DIABETES EYE EXAM (03/21/2020) us Abstract Spg Provider HEALTH MAINTENANCE Final R esult * (ABNORMAL) MICROALBUMIN/CREATININE RATIO, RANDOM UR (03/01/2020 9:13 AM POULTRY HELPER) MICROALBUMIN, URINE 21.7 No Reference Range mg/dL 03/01/2020 7:53 PM [facility] CREATININE, URINE 125.1 40.0 - 278.0 mg/dL 03/01/2020 7:53 PM [facility] Comment:Reference Range vari es with fluid intake and diet. MICROALBUMIN/ CREAT RATIO, UR 173.5(H) <17.0 mg/g 03/01/2020 7:53 PM [facility] Urine URINE SPECIMEN OBTAINED BY CLEAN CATCH PROCEDURE / Unknown Collection / Unknown 03/01/2020 9:13 AM POULTRY HELPER 03/01/2020 7:23 PM POULTRY HELPER Mariya [facility] - 03/01/2020 7:53 PM POULTRY HELPER Condition Microalbumin/Creat ratio Normal Males <17 Normal Females <25 Microalbuminuria Males 17-299 Microalbuminuria Females 25-299 Overt proteinuria >=300 Yasmany SAPP URINE ORDERABLES Final Resul t [facility] CLIA# [id number] [address] [place] [address] * (ABNORMAL) LIPID PANEL (03/01/2020 9:13 AM POULTRY HELPER) [facility] CHOLESTEROL 96 <200 mg/dL 03/01/2020 7:51 PM [facility] TRIGLYCERIDE 152(H) <150 mg/dL 03/01/2020 7:51 PM [facility] HDL 36(L) 40 - 59 mg/dL 03/01/2020 7:51 PM [facility] LDL CALCULATED 30 <100 mg/dL 03/01/2020 7:51 PM [facility] NON-HDL CHOLESTEROL 60 <130 mg/dL 03/01/2020 7:51 PM [facility] Blood Venipuncture / Unknown 03/01/2020 9:13 AM POULTRY HELPER 03/01/2020 7:22 PM [facility] Narrative [facility] - 03/01/2020 7:51 PM POULTRY HELPER TOTAL CHOLESTEROL mg/dL Desirable <200 Borderline high 200-239 High >=240 TRIGLYCERIDES mg/dL Normal <150 Borderline high 150-199 High 200-499 Very high >=500 HDL CHOLESTEROL mg/dL Low <40 Normal 40-59 Desirable >=60 NON HDL CHOLESTEROL mg/dL Optimal <130 Near Optimal 130-159 Borderline High 160-189 Very High >=190 CALCULATED LDL mg/dL LDL <70, OPTIMAL if have Atherosclerotic cardiovascular disease (ASCVD) or intermediate or higher (>7.5%) 10 year risk of ASCVD including most adults with diabetes. LDL <100, Optimal in adult patients with low (<7.5%) 10 year ASCVD risk LDL 100-160, Suboptimal LDL >160, High LDL >190, Very high ATPIII Guidelines Reference Ranges for Lipid Panels (NCEP/AMA) . us Yasmany SAPP CHEMISTRY ORDERABLES Final R esult [facility] CLIA# [id number] [address] [place] [address] from Last 3 Months or Most Recently Relevant to Health Maintenance [place] [address] [place] [address] Care Teams Poolroom/Poolhall Manager Relationship Specialty Start Date End Date Non-Staff, Physician NO ADDRESS ON FILE PCP - General 03/03/04
--- OUTSIDE RECORDS SUMMARY | 2025-01-04 09:59 | XMS_ITS | Encounter Summary ---
Author Organization [facility] Address [address] [place] [address] Care Team Providers Care Medical Administrative Name Role Phone Non-Staff, Physician Primary Care Provider Unava ilable Reason for Referral * Outpatient Services (Routine) - Closed Specialty Diagnoses / Procedures Referred By Contac t Referred To Contact Radiology Diagnoses Calculus of kidney Procedures XR ABDOMEN 1 VW Jose D Lenz MD NO ADDRESS ON FILE [facility] [address] [place] [address] Phone: tel: fax: Referral ID Status Reason Start Date Expiration Date V isits Requested Visits Authorized [id number] Closed [facility] TO SCHEDULE ([facility]) 07/11/2013 08/11/2014 1 1 Encounter Details Date Type Department Care Team (Late st Contact Info) Description 07/11/2013 Ancillary Orders [facility] Pre-Registration [place] CALL TO MAKE APPOINTMENT ONLY [address] [place] [address] Jose D Lenz MD NO ADDRESS ON FILE Calculus of kidney (Primary Dx) Social History Tobacco Use Types Packs/Day Years Used Date Smoking Tobacco: Never Smokeless Tobacco: Never Alcohol Use Standard Drinks/Week Comments No 0 (1 standard drink = 0.6 oz pur e alcohol) Sex and Gender Information Value Date Recorded Sex Assigned at Not on file 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
--- OUTSIDE RECORDS SUMMARY | 2025-01-04 09:59 | XMS_ITS | Encounter Summary ---
Author Organization [facility] Address [address] [place] [address] Care Team Providers Care Construction Project Administrator Name Role Phone Non-Staff, Physician Primary Care Provider Unava ilable Encounter Details Date Type Department Care Team (Latest Contact Info) Description 03/03/2004 Outpatient Historical [facility] Cardiac Refrigeration Engine Operator [address] [place] [address] Marcelino Thayer MD [address] [facility] [address] [place] [address] CORON ATHEROSCL [place] CORON VESSEL (Primary Dx) Social History Tobacco Use Types Packs/Day Years Used Date Smoking Tobacco: Never Assessed Sex and Gender Information Value Date Recorded Sex Assigned at Not on file 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
--- OUTSIDE RECORDS SUMMARY | 2025-01-04 09:59 | XMS_ITS | Encounter Summary ---
Author Organization [facility] Address [address] [place] [address] Care Team Providers Care Ball Holder Name Role Phone Non-Staff, Physician Primary Care Provider Unava ilable Reason for Referral * Outpatient Services (Urgent) - Closed Specialty Diagnoses / Procedures Referred By Contac t Referred To Contact Radiology Diagnoses Calculus of kidney Gross hematuria Procedures XR ABDOMEN 1 VW Jose D Lenz MD NO ADDRESS ON FILE [facility] [address] [place] [address] Phone: tel: fax: Referral ID Status Reason Start Date Expiration Date V isits Requested Visits Authorized [id number] Closed [facility] ([facility] 07/06/2013 08/06/2014 1 1 * Outpatient Services (Urgent) - Closed Specialty Diagnoses / Procedures Referred By Contac t Referred To Contact Diagnoses Calculus of kidney Gross hematuria Procedures CT URINARY CALCULI WO CONTRAST Jose D Lenz MD NO ADDRESS ON FILE [facility] Pre-Registration [place] CALL TO MAKE APPOINTMENT ONLY [address] [place] [address] Phone: tel: fax: Referral ID Status Reason Start Date Expiration Date V isits Requested Visits Authorized [id number] Closed [facility] ([facility] 07/06/2013 08/05/2013 1 1 Encounter Details Date Type Department Care Team (Late st Contact Info) Description 07/06/2013 Ancillary Orders [facility] Pre-Registration [place] CALL TO MAKE APPOINTMENT ONLY [address] [place] [facility] [place] [id number] Jose D Lenz MD NO ADDRESS ON FILE Calculus of kidney (Primary Dx); Gross hematuria Social History Tobacco Use Types Packs/Day Years Used Date Smoking Tobacco: Never Smokeless Tobacco: Never Alcohol Use Standard Drinks/Week Comments No 0 (1 standard drink = 0.6 oz pur e alcohol) Sex and Gender Information Value Date Recorded Sex Assigned at Not on file 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 Exam: XR ABDOMEN 1 VW Date/Time of Exam: Jul 06, 2013 01:23:38 PM Reason For Exam: Calculus of kidney. Findings: Bowel gas pattern within normal limits. An ill-defined calcification projected to the left of the L2 vertebral body most likely represents calculus seen on CT of the same day at the ureteropelvic junction. No other urinary calculus is visualized. Bowel gas pattern within normal limits. Mild degenerative changes are noted in the spine. CC/tjb - uploaded from [employer]- Narrative Procedure Note Garth Xie MD - 07/06/2013 IMPRESSION IMPRESSION: See report below. Exam: XR ABDOMEN 1 VW Date/Time of Exam: Jul 06, 2013 01:23:38 PM Reason For Exam: Calculus of kidney. Findings: Bowel gas pattern within normal limits. An ill-defined calcification projected to the left of the L2 vertebral body most likely represents calculus seen on CT of the same day at the ureteropelvic junction. No other urinary calculus is visualized. Bowel gas pattern within normal limits. Mild degenerative changes are noted in the spine. CC/tjb - uploaded from [employer]- us Jose D Lenz MD DIAGNOSTIC IMAGING ORD ERABLES Final Result * CT URINARY CALCULI WO CONTRAST (07/06/2013 1:23 PM CDT) Anatomical Region Laterality Modality Abdomen Computed Tomogra phy 07/06/2013 12:5 9 PM CDT Impressions 07/06/2013 2:09 PM CDT IMPRESSION: See report below. Exam: CT RENAL COLIC WO CONT Date/Time of Exam: Jul 06, 2013 01:23:01 PM Reason For Exam: Calculus of kidney. Technique: CT of the abdomen and pelvis was performed with noncontrast images obtained from above the diaphragms to below the inferior pubic rami. There are calcified granulomas in the lungs. There is some dependent atelectasis. No pleural or pericardial effusion is identified. Coronary artery calcifications are noted. The adrenal glands and pancreas have an appropriate appearance. The liver and spleen are homogeneous. Nonobstructive nephrolithiasis is noted in both kidneys. There is mild left hydronephrosis. On image 44, there is a 6 mm calculus at the left ureteropelvic junction. No calculi are identified in the ureters or bladder. The bladder is unremarkable. Small fat-filled inguinal hernias are noted. There is abundant colonic stool. The appendix is unremarkable. Small appendicolith is noted. No inflammatory changes are identified. There is no adenopathy. Degenerative changes are noted in the spine. The vertebral body heights are maintained. There is no subluxation and no acute fracture. Impression: 1. Nephrolithiasis. There is mild left hydronephrosis with calculus at the left ureteropelvic junction as above. No additional calculi are identified in the ureters or bladder. JT/rli - uploaded from [employer] - Narrative Procedure Note Renetta Williamson MD - 07/06/2013 IMPRESSION IMPRESSION: See report below. Exam: CT RENAL COLIC WO CONT Date/Time of Exam: Jul 06, 2013 01:23:01 PM Reason For Exam: Calculus of kidney. Technique: CT of the abdomen and pelvis was performed with noncontrast images obtained from above the diaphragms to below the inferior pubic rami. There are calcified granulomas in the lungs. There is some dependent atelectasis. No pleural or pericardial effusion is identified. Coronary artery calcifications are noted. The adrenal glands and pancreas have an appropriate appearance. The liver and spleen are homogeneous. Nonobstructive nephrolithiasis is noted in both kidneys. There is mild left hydronephrosis. On image 44, there is a 6 mm calculus at the left ureteropelvic junction. No calculi are identified in the ureters or bladder. The bladder is unremarkable. Small fat-filled inguinal hernias are noted. There is abundant colonic stool. The appendix is unremarkable. Small appendicolith is noted. No inflammatory changes are identified. There is no adenopathy. Degenerative changes are noted in the spine. The vertebral body heights are maintained. There is no subluxation and no acute fracture. Impression: 1. Nephrolithiasis. There is mild left hydronephrosis with calculus at the left ureteropelvic junction as above. No additional calculi are identified in the ureters or bladder. JT/rli - uploaded from [employer] - us Jose D Lenz MD CT ORDERABLES Final Result documented in this encounter Visit Diagnoses Diagnosis Calculus of kidney- Primary Gross hematuria Calculus of kidney Gross hematuria Calculus of kidney Gross hematuria documented in this encounter Care Teams Ball Holder Relationship Specialty Start Date End Date Non-Staff, Physician NO ADDRESS ON FILE PCP - General 03/03/04 documented as of this encounter
--- NOTE | 2025-01-04 10:51 | W.ED.WEAKNES ---
HPI - Weakness General: Chief complaint: Weakness Stated complaint: dizzy / abn blood sugar Time Seen by Provider: 01/04/25 10:24 History of Present Illness: 74-year-old male presents emergency room complaining of dizziness and weakness he has been unable to eat or drink much. He states everything he tries to eat or drink it comes back up. He was recently diagnosed with esophageal cancer by EGD. He has not yet started any treatments. She denies any hemoptysis no chest pain generalized abdominal discomfort no diarrhea. He is able to handle secretions but not able to keep much fluids down. He had been able to keep some get some of his pills down but the larger pills he has not been able to take. Today he cannot swallow even any liquids. Fortunately they have continued his insulin so his blood sugars have been running fairly low. Associated symptoms: Denies chest pain, chills, dysuria or fever(s) Related Data Home Medications ?Medication ?Instructions ?Recorded ?Confirmed solifenacin 5 mg tablet 5 mg PO DAILY 10/22/20 12/27/24 metformin 500 mg tablet 1,000 mg PO BID 09/16/21 12/27/24 insulin NPH isoph U-100 human 100 10 unit SUBCUT BID 06/15/22 12/27/24 unit/mL (3 mL) subcutaneous pen (Humulin N NPH U-100 Insulin KwikPen) sucralfate 1 gram tablet 1 g PO QID 12/27/24 12/27/24 Previous Rx's ?Medication ?Instructions ?Recorded Diabetic shoes #1 ea 01/19/23 medial foundry manager brace, right knee #1 ea 10/27/23 digoxin 250 mcg (0.25 mg) tablet See Rx Instructions .Route 02/14/24 .COMPLEX #90 tabs simvastatin 80 mg tablet See Rx Instructions .Route 02/14/24 .COMPLEX #90 tabs apixaban 5 mg tablet (Eliquis) 5 mg PO BID #30 tabs 05/08/24 metoprolol tartrate 25 mg tablet See Rx Instructions .Route 06/12/24 .COMPLEX #180 tabs lisinopril 20 mg tablet See Rx Instructions .Route 07/19/24 .COMPLEX #90 tabs Allergies Allergy/AdvReac Type Severity Reaction Status Date / Time prednisone Allergy Intermediate Unknown Verified 12/27/24 10:01 Review of Systems Const: Denies: fever(s) or chills Card: Denies: chest pain Resp: Denies: dyspnea GI: Denies: abdominal pain : Denies: dysuria, urinary frequency or urinary urgency Musc: Denies: neck pain or back pain Skin/Breast: Denies: rash PFSH ED PFSH: Medical History Prostate cancer PATHOLOGY: Bilateral large volume involvement of [place] 3+4, 4+3, (50-95%) and one area of 4+4 (60%) STAGING STUDIES: CT Scan abdomen and Pelvis: no evidence of metastatic disease Bone Scan: No evidence of metastatic disease Atrial fibrillation Anticoagulant long-term use Dyslipidemia Diabetes HTN (hypertension) Renal calculi Surgical History Status post laser lithotripsy of ureteral calculus S/P extracorporeal shock wave therapy Family History Father , AGE 58 Stroke Mother CAD (coronary artery disease) Myocardial infarction Social History Smoking and tobacco/nicotine status: never used tobacco/nicotine Alcohol intake: never Substance/Drug Use: never Marital status: Current occupational status: retired Physical Exam Const: GENERAL APPEARANCE: cooperative ORIENTATION/CONSCIOUSNESS: Yes awake, Yes oriented to person, Yes oriented to place and Yes oriented to time HENMT: COMMON NORMALS: normocephalic, atraumatic and hearing grossly normal bilaterally HEAD & SCALP: normocephalic and atraumatic Resp: COMMON NORMALS: normal respiratory effort, No retractions, No use of accessory muscles and clear to auscultation bilaterally AUSCULTATION: clear to auscultation bilaterally Cardio: COMMON NORMALS: regular rate and No murmurs present (Cardio) RATE: regular rate RHYTHM: abnormal rhythm irregularly irregular GI: COMMON NORMALS: Soft to palpation and No hepatosplenomegaly present AUSCULTATION: Yes normoactive bowel sounds PALPATION: Yes Soft to palpation, No Tenderness to palpation present (GI), No Guarding due to palpation present (GI) and Yes No hepatosplenomegaly present Extremity: COMMON NORMALS: normal to inspection, capillary refill normal, no clubbing, cyanosis or edema, no calf tenderness and no pedal edema Neuro: SENSORIUM/ORIENTATION: Yes oriented to person, Yes oriented to place and Yes oriented to time Skin: COMMON NORMALS: no rashes or lesions noted GENERAL SKIN EXAM: no rashes or lesions noted Course Vital Signs: Vital signs: Vital Signs Temperature 98.1 F 01/04/25 10:09 Pulse Rate 69 01/04/25 17:00 Respiratory Rate 16 01/04/25 10:09 Blood Pressure 175/70 01/04/25 17:00 Pulse Oximetry 96 01/04/25 17:00 Oxygen Delivery Me thod Room Air 01/04/25 17:00 MDM - Weakness Medical Decision Making Patient has esophageal cancer we were trying to get the copy of the records from [place] where he had it biopsied about a week and a half ago. We told him he has an esophageal cancer he supposed have a PET scan interestingly he states he has been swallowing his pills he gets some of them down but not others. But he is not able to swallow any liquids down open we trialed him here he was not getting them down. We did give him some IV fluids metabolic anion gap did not improve. We consulted Dr. Licea our general surgeon he does not believe he could get a scope past the cancer given the fact the patient is not even able to swallow liquids he be concerned about perforating. Patient needs a PEG tube and possibly an esophageal stent. Discussed with the family different options Dr. Licea discussed with them the possibility of an open placement of the PEG tube instead recommends that he be referred for IR to place PEG tube percutaneously. Family is agreeable to this we have contacted [facility] in [place] where he has had surgeries in the past. We are waiting for IR to contact us back. We have uploaded the films. Incidental finding on scan of ureteral stones these are known he has no pain from his now there is no sign of infection he has follow-up scheduled with urology. He tells me that oncology had actually put it off of it since it was not giving him any problems and his kidney function is well-maintained at this point. Medical Records I reviewed the patient's medical records. Lab Data I reviewed the patient's lab results. 01/04/25 11:49 01/04/25 14:48 Radiology Impressions Abdomen/Pelvis CT 01/04/25 10:52 IMPRESSION: Mild obstructive uropathy with 5 mm calculus in the distal right ureter and 2 mm calculus in the proximal left ureter. Appendicolith without acute abnormality. Laboratory Results WBC 8.10 10^3/uL (3.29-11.43) 01/04/25 11:49 RBC 4.60 10^6/uL (3.85-5.65) 01/04/25 11:49 Hgb 14.30 g/dL (11.27-16.99) 01/04/25 11:49 Hct 43.3 % (37-53) 01/04/25 11:49 MCV 94.1 fl (82-101) 01/04/25 11:49 MCH 31.1 pg (27-33) 01/04/25 11:49 MCHC 33.0 g/dL (30-55) 01/04/25 11:49 RDW 14.6 % (12.1-15.1) 01/04/25 11:49 Plt Count 202 10^3/cmm (157-399) 01/04/25 11:49 MPV 11.3 fL (7.4-10.4) H 01/04/25 11:49 Neut % (Auto) 66.3 % 01/04/25 11:49 Lymph % (Auto) 25.6 % 01/04/25 11:49 [place] % (Auto) 7.5 % 01/04/25 11:49 Eos % (Auto) 0.2 % 01/04/25 11:49 Baso % (Auto) 0.2 % 01/04/25 11:49 Neut # (Auto) 5.36 10^3/uL (1.8-7.7) 01/04/25 11:49 Lymph # (Auto) 2.1 10^3/uL (0.8-4.8) 01/04/25 11:49 [place] # (Auto) 0.6 10^3/uL (0.2-0.9) 01/04/25 11:49 Eos # (Auto) 0.0 10^3/uL (0.0-0.8) 01/04/25 11:49 Baso # (Auto) 0.0 10^3/uL (0.0-0.1) 01/04/25 11:49 Nucleated RBC % (auto) 0 % 01/04/25 11:49 Nucleated RBCs # 0.0 /100WBC 01/04/25 11:49 Sodium 139 mmol/L (136-145) 01/04/25 14:48 Potassium 4.0 mmol/L (3.5-5.1) 01/04/25 14:48 Chloride 98 mmol/L (98-107) 01/04/25 14:48 Carbon Dioxide 17 mmol/L (22-29) L 01/04/25 14:48 Anion Gap 28.0 (5-19) H 01/04/25 14:48 BUN 12 mg/dL (8-23) 01/04/25 14:48 Creatinine 0.6 mg/dL (0.7-1.2) L 01/04/25 14:48 GFR Calculation Not Reportable 01/04/25 14:48 Glucose 210 mg/dL (65-115) H 01/04/25 14:48 POC Glucose 159 mg/dL (70-110) H 01/04/25 12:34 Calculated Osmolality 294 mOsm/kg (285-295) 01/04/25 14:48 Calcium 8.4 mg/dL (8.5-10.5) L 01/04/25 14:48 Total Bilirubin 1.4 mg/dL (0.15-1.2) H 01/04/25 11:49 AST 17 U/L (0-40) 01/04/25 11:49 ALT 13 U/L (0-41) 01/04/25 11:49 Alkaline Phosphatase 79 U/L (40-130) 01/04/25 11:49 Creatine Kinase 33 U/L (39-308) L 01/04/25 11:49 Total Protein 7.3 g/dL (6.6-8.7) 01/04/25 11:49 Albumin 4.3 g/dL (3.5-5.2) 01/04/25 11:49 Globulin 3.0 g/dL (1.3-4.6) 01/04/25 11:49 Lipase 13 U/L (13-60) 01/04/25 11:49 Urine Color Yellow (Yellow) 01/04/25 12:58 Urine Appearance Clear (CLEAR) 01/04/25 12:58 Urine pH 6.0 (5-7) 01/04/25 12:58 Ur Specific [place] 1.045 (1.005-1.030) H 01/04/25 12:58 Urine Protein Trace (Negative) A 01/04/25 12:58 Urine Glucose (UA) Trace (Normal) H 01/04/25 12:58 Urine Ketones 3+ (Negative) H 01/04/25 12:58 Urine Blood 3+ (Negative) A 01/04/25 12:58 Urine Nitrate Negative (Negative) 01/04/25 12:58 Urine Bilirubin Negative (Negative) 01/04/25 12:58 Urine Urobilinogen 0.2 mg/dL (Negative) 01/04/25 12:58 Ur Leukocyte Esterase Negative (Negative) 01/04/25 12:58 Urine RBC >100 /hpf (0-2) H 01/04/25 12:58 Urine WBC 0-4 /hpf (0-5) H 01/04/25 12:58 Ur Squamous Epith Cells 0-4 /hpf (0-5) H 01/04/25 12:58 Amorphous Sediment Not Reportable 01/04/25 12:58 Urine Bacteria None /hpf (NONE) 01/04/25 12:58 Urine Mucus Trace /hpf 01/04/25 12:58 Serum Ketones Negative (Negative) 01/04/25 11:49 All radiology interpretation(s) finalized by discharge Discharge Plan Discharge Patient Disposition: Xfer Short-Term Hosp Clinical Impression: Esophageal mass, Prostate cancer, Atrial fibrillation, Anticoagulant long-term use, HTN (hypertension), Renal calculi, Diabetes Condition: Stable Referrals: Cortez Amaya DO [Primary Care Provider, [facility]] Print Language: Cypriot Coding Level of Care Code ED Overhead Crane Technician for Magdalena Castellon
--- NOTE | 2025-01-04 10:52 | CT_ITS ---
WS: [id number] CT abdomen pelvis w con* [id number] REASON FOR EXAM: abd pain IV CONTRAST ADMINISTERED: 100 mL of Omnipaque 350 TECHNIQUE: Multiple axial images without intravenous contrast enhancement. COMPARISON examination 07/06/2024. TOTAL EXAM DLP: 740.[address] scans at [facility] use at least one of these dose optimization techniques: automated exposure control; mA and/or kV adjustment per patient size (includes targeted exams where dose is matched to clinical indication); or iterative reconstruction. FINDINGS: No significant lung base abnormality. The liver, spleen, pancreas, and gallbladder are unchanged compared to the previous examination. Tiny calculus in the gallbladder. There are small bilateral renal cysts. Small intrarenal calculi on the right. There is borderline hydronephrosis on the right and mild hydronephrosis on the left. Left hydronephrosis is due to a 2 mm calculus in the proximal left ureter. No mass, adenopathy, focal fluid collection, or free fluid is identified in the abdomen. There is an appendicolith, which was present on the previous examination, with no findings of appendicitis. No other bowel abnormality is identified. PELVIS: There is a 5 mm calculus in the distal right ureter several centimeters proximal to the ureterovesical junction. There is mild dilatation of the ureter more superiorly. No other significant finding in the pelvis Mild degenerative spondylosis in the lumbar spine with no focal bone lesion. No focal bone lesion in the pelvis. There is no evidence of acute hemorrhage or inflammation in the abdomen or pelvis. CT/CT abdomen pelvis w con* [id number] IMPRESSION: Mild obstructive uropathy with 5 mm calculus in the distal right ureter and 2 m m calculus in the proximal left ureter. Appendicolith without acute abnormality.
[2025-01-04] MEDS: iohexol 350 mg/mL 500 mL Btl (per mL) IV (12:27)
[2025-01-04] MEDS: morphine 4 mg/mL SDV 1 mL IVP (12:31)
[2025-01-04 12:38] LABS: Hematocrit 43.3 % (37-53); Hemoglobin 14.30 g/dL (11.27-16.99); Mean Corpuscular HGB Conc 33.0 g/dL (30-55); Mean Corpuscular Hemoglobin 31.1 pg (27-33); Mean Corpuscular Volume 94.1 fl (82-101); Nucleated Red Blood Cells % 0 %; Platelet Count 202 10^3/cmm (157-399); Red Blood Count 4.60 10^6/uL (3.85-5.65); White Blood Count 8.10 10^3/uL (3.29-11.43)
[2025-01-04 12:49] LABS: Alanine Aminotransferase 13 U/L (0-41); Albumin Level 4.3 g/dL (3.5-5.2); Alkaline Phosphatase 79 U/L (40-130); Anion Gap 27.2 (5-19); Aspartate Amino Transferase 17 U/L (0-40); Blood Urea Nitrogen 15 mg/dL (8-23); Calcium 9.8 mg/dL (8.5-10.5); Carbon Dioxide 20 mmol/L (22-29); Chloride 94 mmol/L (98-107); Creatinine Clr Calc Pharmacy 95.1060; Globulin 3.0 g/dL (1.3-4.6); Glucose 180 mg/dL (65-115); Lipase 13 U/L (13-60); Osmolality Calculated 289 mOsm/kg (285-295); Potassium 4.2 mmol/L (3.5-5.1); Sodium 137 mmol/L (136-145); Total Protein 7.3 g/dL (6.6-8.7)
[2025-01-04 13:04] LABS: Glucose Urine UA Trace (Normal); Nitrate Urine Negative (Negative)
[2025-01-04 13:30] LABS: Specific Gravity, Urine 1.045 (1.005-1.030); UA Manual Slide Review YES
[2025-01-04 13:31] LABS: Add Urine Microscopic? YES
[2025-01-04 15:13] LABS: Anion Gap 28.0 (5-19); Blood Urea Nitrogen 12 mg/dL (8-23); Calcium 8.4 mg/dL (8.5-10.5); Carbon Dioxide 17 mmol/L (22-29); Chloride 98 mmol/L (98-107); Creatinine Clr Calc Pharmacy 95.1060; Glucose 210 mg/dL (65-115); Osmolality Calculated 294 mOsm/kg (285-295); Potassium 4.0 mmol/L (3.5-5.1); Sodium 139 mmol/L (136-145)
[2025-01-04 15:44] LABS: Ketone (Acetest) Serum Negative (Negative)
[2025-01-04] MEDS: LORazepam 1 MG/0.5 ML injection IVP (16:43)
--- NOTE | 2025-01-04 16:59 | PM.CONSULT ---
Providers/Reason For Consult Consulting Physician/Specialty*: uvaldo zuniga MD general surgery Reason for Consult*: for possible PEG placement Requesting Physician: MD [facility] provider Primary Care Provider: Cortez Amaya DO History of Present Illness History of Present Illness Ayaan Stanley is a 74 year old male recently diagnosed with esophageal cancer by EGD done elsewhere. He can not tolerate liquids now. He is unsure if they were able to get by esophageal cancer on recent EGD. He is on apixaban for afib. He recently had pancreatic cancer removed in [place]. He would prefer PEG if possible versus open G tube placement. 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, right knee #1 ea 10/27/23 10/17/24 Unknown Rx digoxin 250 mcg (0.25 mg) tablet See Rx Instructions .Route 02/14/24 12/27/24 Unknown Rx .COMPLEX #90 tabs simvastatin 80 mg tablet See Rx Instructions .Route 02/14/24 12/27/24 Unknown Rx .COMPLEX #90 tabs apixaban 5 mg tablet (Eliquis) 5 mg PO BID #30 tabs 05/08/24 12/27/24 Unknown Rx metoprolol tartrate 25 mg tablet See Rx Instructions .Route 06/12/24 12/27/24 Unknown Rx .COMPLEX #180 tabs lisinopril 20 mg tablet See Rx Instructions .Route 07/19/24 12/27/24 Unknown Rx .COMPLEX #90 tabs sucralfate 1 gram tablet 1 g PO QID 12/27/24 12/27/24 Unknown History Allergies Allergy/AdvReac Type Severity Reaction Status Date / Time prednisone Allergy Intermediate Unknown Verified 12/27/24 10:01 Current Medications Generic Name Dose Route Start Last Admin Trade Name Freq PRN Reason Stop Dose Admin Lorazepam 1 mg 01/04/25 15:57 01/04/25 16:43 Lorazepam 1 Mg/0.5 Ml Injection IVP 1 mg Q4H PRN Administration ANXIETY PFSH Acute PFSH: Medical History (Updated 12/27/24 @ 10:39 by Francesca Falcon DO) Prostate cancer PATHOLOGY: Bilateral large volume involvement of [place] 3+4, 4+3, (50-95%) and one area of 4+4 (60%) STAGING STUDIES: CT Scan abdomen and Pelvis: no evidence of metastatic disease Bone Scan: No evidence of metastatic disease Atrial fibrillation Anticoagulant long-term use Dyslipidemia Diabetes HTN (hypertension) Renal calculi Surgical History Status post laser lithotripsy of ureteral calculus S/P extracorporeal shock wave therapy Family History Father , AGE 58 Stroke Mother CAD (coronary artery disease) Myocardial infarction Social History Smoking and tobacco/nicotine status: never used tobacco/nicotine Alcohol intake: never Substance/Drug Use: never Marital status: Current occupational status: retired Vitals/I&O/Wt Last Vital Signs Temp 98.1 F 01/04/25 10:09 Pulse 70 01/04/25 15:30 Resp 16 01/04/25 10:09 BP 144/65 01/04/25 15:30 Pulse Ox 94 01/04/25 15:30 O2 Del Method Room Air 01/04/25 15:30 01/04/25 01/04/25 01/04/25 06:59 14:59 22:59 Intake Total 1000 / 1000 1000 / 1999 Balance 1000 / 1000 1000 / 1999 Weight last 48 hrs Weight 195 lb Physical Exam Narrative: Patient is a well developed well nourished and in NAD and is afebrile with vitals stable and is answering questions appropriately with a normal affect and is alert and oriented x3 HEENT: normocephalic with normal external ears and nonicteric, oral mucosa moist and dentition normal for age, trachea midline with no large masses visualized Heart: RRR, no gallops murmurs or rubs, normal PMI with no thrills Lungs: normal excursions, no loud audible wheezing, no subcutaneous emphysema Abdomen: nondistended, no gross hepatosplenomegaly, no masses, no rigidity or rebound, no loud borborygmi Neuro: nonfocal, POWELL, grossly normal sensation Musculoskeletal: good muscle tone, no fasciculations, normal gait Skin: pink warm and dry with no rashes or ecchymosis Vascular: good radial pulses, no ulceration, less than 2 second capillary refill in hand : deferred Data 01/04/25 11:49 01/04/25 14:48 A&P Assessment and plan 1. Esophageal mass: Likely esophageal cancer has narrowed lumen of esophagus to less than 10 mm which is smaller than size of endoscope. He will be at risk of rupture of esophagus by trying to pass scope through a tight cancer stricture. Could repeat EGD to prove this. But if able to get through wont be able to do any procedures until he is off the apixaban for 2-3 days. He would prefer PEG placement. IR can sometimes place G tuber percutaneous. but we do not have IR here. Open G tube will be difficult because of recent pancreatectomy for cancer done in [place]. It may be safer to refer him back to [place] for G tube placement. PDMP PDMP Reviewed: Not Reviewed Coding Level of Care Code 72421 Diagnoses Esophageal mass K22.89
[2025-01-04] MEDS: sodium chlor 0.9% + KCl 20 mEq 20 MEQ/1,000 ML BAG 125 MEQ IV (17:38)
--- NOTE | 2025-01-04 20:14 | PC.NURSE ---
Pt called and notified of room number 810 bed 2. thankful for call and update.
--- NOTE | 2025-01-04 20:43 | PC.NURSE ---
Nathan Mac called, Pt is currently on 1L NS with 20 MEQ K+, BLS cannot transport with fluids, Dr. Giron informed and stated to DC Fluids upon pt transfer out.
[2025-01-04] MEDS: ondansetron 2 mg/ML SDV 2 mL 4 MG IVP (21:45)
== END 2025-01-04 22:00 | disposition short-term general hospital (02) ==
PROVIDERS: Emergency Provider Family Medicine; PCP Electrodiagnostic Medicine
DX: C15.9 Malignant neoplasm of esophagus, unspecified (principal); C61 Malignant neoplasm of prostate; K22.9 Disease of esophagus, unspecified; I48.91 Unspecified atrial fibrillation; Z79.01 Long term (current) use of anticoagulants; I10 Essential (primary) hypertension; N20.0 Calculus of kidney; E11.9 Type 2 diabetes mellitus without complications; E78.5 Hyperlipidemia, unspecified; Z87.442 Personal history of urinary calculi
CPT/HCPCS: 36415; 36416; 74177; 80048; 80053; 81001; 82009; 82550; 82962; 83690; 85025; 87086; 96361; 96374; 96375; 99285; J2060; J2270; J2405; J3480; J7030

== ENCOUNTER → 2025-01-16 14:21 | Outpatient (BNVA) | payer MEDICARE, SELFPAY | PROVIDERS: PCP Electrodiagnostic Medicine; Visit Provider Podiatrist Foot & Ankle Surgery | DX: E11.43 Type 2 diabetes mellitus with diabetic autonomic (poly)neuropathy (principal); B35.1 Tinea unguium; L84 Corns and callosities; E11.8 Type 2 diabetes mellitus with unspecified complications; Z79.84 Long term (current) use of oral hypoglycemic drugs; Z79.4 Long term (current) use of insulin | CPT/HCPCS: 11056; 11721 ==

== ENCOUNTER → 2025-01-24 08:19 | Outpatient (BNVA) | payer MEDICARE, SELFPAY | PROVIDERS: PCP Electrodiagnostic Medicine; Visit Provider Surgery | DX: Z95.828 Presence of other vascular implants and grafts (principal) | CPT/HCPCS: 99204 ==

== ENCOUNTER 2025-01-29 05:34 | Day surgery (SDC) | payer MEDICARE, SELFPAY ==
[2025-01-29] VITALS (9 sets, daily range): BP systolic 130–152; BP diastolic 74–94; PULSE 60–99; RESP 18–20; TEMP 36.1–36.4; O2SAT 96–100; BMI 27.1
--- NOTE | 2025-01-29 06:44 | ANES.PREANE2 ---
Pre-Anesthetic Assessment Height/Weight: Height 1.8 m Weight 88.451 kg Temp Pulse Resp BP Pulse Ox O2 Del Method 983.5 F H 87 18 139/94 96 Room Air 01/29/25 06:00 01/29/25 06:00 01/29/25 06:00 01/29/25 06:00 01/29/25 06:00 01/29/25 06:00 Operation Date: 01/29/25 07:00 Proposed Procedures p Port a Cath Insertion 14473 C15.9 Z95.828(Not Applicable) - Marcelino Vallecillo MD Familial anesthetic complications: None Was Beta Jose taken within 24 hours: N/A Was Clonidine taken within 24 hours: N/A Last intake: Intake Last Liquid Date 01/28/25 Last Liquid Time 20:00 Last Solid Date 01/28/25 Last Solid Time 18:30 Social No alcohol and No tobacco Exam alert, oriented x 3, clear to auscultation bilaterally and regular rate & rhythm Airway Dentition: other (no teeth) CV/HEM Atrial Fibrillation and Hypertension GI esophageal Metabolic Diabetes Mellitus Anesthetic Plan ASA status: 4 Anesthesia: MAC Risk of > 500 ml blood loss (7ml/kg in children): No Medications/Allergies Home Medications ?Medication ?Instructions ?Recorded ?Confirmed ?Last Taken ?Type solifenacin 5 mg tablet 5 mg PO DAILY 10/22/20 01/25/25 01/28/25 History Diabetic shoes #1 ea 01/19/23 01/24/25 Unknown Rx medial electronic systems technician brace, right knee #1 ea 10/27/23 01/24/25 Unknown Rx apixaban 5 mg tablet (Eliquis) 5 mg PO BID #30 tabs 05/08/24 01/25/25 01/26/25 Rx digoxin 250 mcg (0.25 mg) tablet 250 mcg PO DAILY 01/25/25 01/25/25 01/28/25 History insulin glargine 100 unit/mL (3 44 unit SUBCUT DAILY 01/25/25 01/25/25 01/28/25 History mL) subcutaneous pen (Lantus Solostar U-100 Insulin) insulin lispro 100 unit/mL 15 unit SUBCUT TID 01/25/25 01/25/25 01/28/25 History subcutaneous pen (Humalog KwikPen (U-100) Insulin) lisinopril 20 mg tablet 20 mg PO DAILY 01/25/25 01/25/25 01/28/25 History metoprolol tartrate 25 mg tablet 25 mg PO DAILY 01/25/25 01/25/25 01/28/25 History simvastatin 80 mg tablet 80 mg PO DAILY 01/25/25 01/25/25 01/28/25 History prochlorperazine maleate 10 mg 10 mg PO Q6H PRN mild nausea #30 01/26/25 Unknown Rx tablet (Compazine) tabs Allergies Allergy/AdvReac Type Severity Reaction Status Date / Time prednisone Allergy Intermediate Unknown Verified 01/29/25 05:52 Current Medications Generic Name Dose Route Start Last Admin Trade Name Freq PRN Reason Stop Dose Admin Sodium Chloride 1,000 mls @ 30 mls/hr 01/29/25 06:00 01/29/25 06:09 Sodium Chloride 0.9% IV 01/30/25 05:59 30 mls/hr .Q24H KITTY Administration PFSH Anesthesia Medical History Prostate cancer PATHOLOGY: Bilateral large volume involvement of Wan 3+4, 4+3, (50-95%) and one area of 4+4 (60%) STAGING STUDIES: CT Scan abdomen and Pelvis: no evidence of metastatic disease Bone Scan: No evidence of metastatic disease Atrial fibrillation Anticoagulant long-term use Dyslipidemia Diabetes HTN (hypertension) Renal calculi Surgical History Status post laser lithotripsy of ureteral calculus S/P extracorporeal shock wave therapy Family History Father , AGE 58 Stroke Mother CAD (coronary artery disease) Myocardial infarction Social History Smoking and tobacco/nicotine status: never used tobacco/nicotine Alcohol intake: never Substance/Drug Use: never Marital status: Current occupational status: retired
--- NOTE | 2025-01-29 06:48 | W.PM.OPSUD ---
Surgery/Procedure H&P Update DATE OF PROCEDURE: January 29, 2025 DATE H&P PERFORMED: 01/24/25 H&P UPDATE INFORMATION: I have reviewed H&P completed within last 30 days, I have examined patient prior to procedure, No changes to prior documentation, H&P is in [facility] EMR on date indicated and Risks and benefits of the procedure reviewed PLANNED PROCEDURE: Operation Date: 01/29/25 07:00 Proposed Procedures p Port a Cath Insertion 50946 C15.9 Z95.828(Not Applicable) - Marcelino Vallecillo MD
[2025-01-29] MEDS: ceFAZolin 2,000 mg SDV 2000 MG IVP (07:14)
--- NOTE | 2025-01-29 07:19 | SC_ITS ---
WS: [id number] Exam: C-arm FL for CVA [id number] Date/Time of Exam: 01/29/2025 7:19 AM Reason For Exam: port placement DLP: Single AP C arm image of the upper chest is submitted. The image depicts a RIGHT subclavian port in place. The tip of the catheter is difficult to discern however it may and near the cavoatrial junction. No other significant finding on this limited study.
[2025-01-29] MEDS: BUPivacaine 0.25% INJ 30 mL INJECTION (07:23)
[2025-01-29] MEDS: lidocaine-epi 1% PF 1:200,000 30 mL SDV INJECTION (07:23)
[2025-01-29] MEDS: heparin, porcine 1,000 unit/mL INJ 10 mL 10000 UNIT IRRIGATION (07:23)
--- NOTE | 2025-01-29 07:55 | PM.OP ---
Operative Report Date of procedure: January 29, 2025 Pre-op diagnosis: Esophageal cancer Post-op diagnosis: Same Post-op findings: Normal vascular anatomy of the right neck Surgeon: Marcelino Vallecillo MD Estimated blood loss: 10cc Brief History: 74-year-old male with history of esophageal cancer who is going to undergo chemotherapy And requested to place a port. After discussion of all risk benefits we decided to proceed Procedure: Patient was brought into the OR, he was placed in a supine position, monitored anesthesia sedation was given. Timeout was conducted after the skin was prepped and draped in the usual sterile fashion. I then proceeded to identify the right IJ vein with ultrasound, I infiltrated local anesthesia on top of the vein. I then proceeded to cannulate the vein under direct ultrasound guidance using an 18-gauge needle, the needle tip was seen entering the vein and immediate return of blood was noted. A wire was advanced through the needle and the needle was removed. The position of the wire was verified with ultrasound and fluoroscopy. The wire was then fixed to the drapes. I then placed my attention to the chest, local anesthesia was infiltrated in the previously marked area on the chest and then a tract connecting the chest to the wire insertion site in the neck. I then proceeded to make a 3.5 cm incision in the right upper chest, the incision was deepened to subcutaneous tissue with electrocautery and electrocautery was used to create the subcutaneous pocket to house the Port-A-Cath. I then proceeded to use a hemostat to create a tunnel from the chest wound to the neck. I then proceeded to make a 0.5 cm incision at the level of the wire insertion site in the neck. Hemostasis was verified. I then placed the Port-A-Cath in the pocket and tunneled the catheter using the provided tunneler. The catheter was cut to appropriate length under fluoroscopy guidance and then flushed. I then proceeded to insert an introducer with a peel-off sheath over the wire under direct fluoroscopic guidance. I then remove the wire and the introducer leaving the peel-off sheath in place. The catheter was then advanced through the peel-off sheath and the peel-off sheath was removed leaving the catheter in place. Fluoroscopy showed evidence of Adequate catheter position. I then proceeded to access the port; the port was retrieving blood and flushing fine, I then hep-locked the catheter. Hemostasis was verified. The wound was closed in layers using #3-0 Vicryl for the subcutaneous tissue and #4 Monocryl for the skin. Dermabond was applied. At the end of the procedure all counts were correct. The patient tolerated well the procedure and was transferred to the PACU in stable condition.
--- NOTE | 2025-01-29 08:50 | ANE.PACU2 ---
Inpatient post-anesthesia follow up: Airway intact: Yes Vital signs: Temperature 97.0 F Pulse Rate 65 Respiratory Rate 18 Blood Pressure 150/79 Pulse Oximetry 100 Oxygen Delivery Me thod Room Air Oxygen Flow Rate 1 Fraction of Inspir ed Oxygen Hydration adequate: Yes Nausea and vomiting: No Pain level: 1 Mental status: Baseline
== END 2025-01-29 08:51 | disposition home or self-care (01) ==
PROVIDERS: PCP Electrodiagnostic Medicine; Visit Provider Surgery
PROC: (CPT 36561; principal; 2025-01-29 07:00)
DX: C15.9 Malignant neoplasm of esophagus, unspecified (principal); I48.91 Unspecified atrial fibrillation; I10 Essential (primary) hypertension; E11.9 Type 2 diabetes mellitus without complications; Z79.4 Long term (current) use of insulin; Z79.01 Long term (current) use of anticoagulants; E78.5 Hyperlipidemia, unspecified; Z85.46 Personal history of malignant neoplasm of prostate; Z79.84 Long term (current) use of oral hypoglycemic drugs
CPT/HCPCS: 36561; 36416; 76000; 77001; 82962; C1788; J0690; J1644; J2250; J2405; J2704; J3010; J3490; J7030; J9999

== ENCOUNTER 2025-01-30 13:48 | Oncology outpatient (recurring) (ONCR) | payer MEDICARE, SELFPAY ==
--- NOTE | 2025-01-12 10:30 | PETR_ITS ---
PROCEDURE INFORMATION: Exam: PET/CT Skull Base to Mid-thigh Exam date and time: 01/12/2025 11:19 AM Age: 74 years old Clinical indication: Condition or disease; Primary cancer: Esophageal cancer; Prior surgery; Surgery date: 6+ months; Surgery type: Hernia; ? History of pancreatic cancer LABS AND CLINICAL REPORTS: Glucose: 165 mg/dl Treatment strategy for malignancy (PET staging): Initial Staging (PI) TECHNIQUE: Imaging protocol: Following at least four-hour fasting and following the injection of radiopharmaceutical, low dose CT images were obtained. Then, PET images were obtained. Attenuation corrected images were constructed using the CT scan. Fused images of PET and CT were reviewed. The standardized uptake values (SUV) reported below are maximum values within a region of interest, expressed in gm/ml. Exam includes orbital meatal line to mid-thigh. SUV normalization method: BodyWeight Radiopharmaceutical: 12.41 mCi F-18 FDG (Fluorodeoxyglucose), IV. Time of imaging post radiopharmaceutical administration: 51 minutes Injection site: left ac COMPARISON: CT abdomen pelvis w con* [id number] 01/04/2025 12:17 PM FINDINGS: Tubes, catheters and devices: Interval percutaneous gastrostomy. Brain: Visualized brain has normal physiologic uptake. Salivary glands: 7 mm long calcification at the anterior lower left oral cavity on axial image 75 suspected to represent stone within submandibular duct. No abnormal FDG uptake. Pharynx: No abnormal uptake. Larynx: No abnormal uptake. Lungs, pleura and trachea: No abnormal uptake. Mild dependent atelectasis. Bilateral calcified granulomata. No consolidation or mass. Heart: Normal physiologic uptake. Coronary arteries: Heavy coronary artery calcification. Mediastinal space: No abnormal uptake. Esophagus: FDG avid distal esophageal thickening with SUV max 32.6 (non FDG avid small hiatal hernia). Air and fluid within mildly dilated upstream esophagus. Liver: No abnormal uptake. Gallbladder and biliary ducts: No abnormal uptake. Pancreas: No abnormal uptake. Atrophic without ductal dilatation. Spleen: No abnormal uptake. Calcified granulomata. Adrenal glands: No abnormal uptake. Kidneys and ureters: Normal physiologic uptake. Benign-appearing bilateral renal cysts. Tiny nonobstructive right nephrolithiasis. Stomach and bowel: No abnormal uptake. Reproductive: Prior prostatectomy. Large right hydrocele. Vasculature: No abnormal uptake. Moderate systemic atherosclerotic calcification without aortic aneurysm. Lymph nodes: FDG avid nonenlarged right upper paratracheal node measures 6 mm in the short axis on axial image 102 and shows SUV max 9.7. FDG avid mediastinal, right retrocrural, and retroperitoneal lymphadenopathy with index left posterior mediastinal node measuring 1.2 cm in the short axis on axial image 143 showing SUV max 19.8, lower right aortoesophageal node measuring 2.1 cm in the short axis on axial image 169 showing SUV max 21.9, right retrocrural node measuring 0.7 cm in the short axis on axial image 186 showing SUV max 9.0, and anterior aortocaval node measuring 6 mm in the short axis on axial image 207 with SUV max 4.3. Proximal perigastric node measures 1.1 cm in the short axis on axial image 178 with SUV max 5.3. Skeleton: Subacute healing medial right 11th rib fracture with associated FDG uptake and callus formation, no underlying osteolytic or blastic lesion. Degenerative change along the spine, acromioclavicular and sacroiliac joints. Soft tissues: No abnormal uptake in the visualized head, neck, chest, abdomen, pelvis, and extremities. Stable mild [id number] ventral abdominal wall subcutaneous fat stranding likely representing post-injection sequela. Small fat containing bilateral inguinal hernias. METRICS: Mediastinal blood pool: SUV mean 2.5 Liver uptake: SUV mean 2.5 PET/PET skull to thigh INIT [id number] IMPRESSION: 1. FDG avid distal esophageal thickening compatible with reported malignancy. 2. FDG avid metastatic mediastinal and right retrocrural lymphadenopathy. Less FDG avid proximal perigastric and right retroperitoneal lymphadenopathy also suspected to be metastatic. 3. Subacute healing medial right 11th rib fracture. 4. Suspect 7 mm long left submandibular duct stone. 5. Additional chronic and incidental findings as above, to include atherosclerosis with heavy coronary artery calcification.
--- NOTE | 2025-01-18 10:17 | N.ONRAD NP_ITS ---
Radiation Oncology New Patient Visit Patient: Ayaan Stanley MR#: [id number] : 1950> Age: 74> Sex: Male> Dictated by: Thomas Sifuentes DO/SANNA/ROSALIND Date of Service: 01/18/2025 Referring Physician(s) : Dr. 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 MD ADENOCARCINOMA DISTAL ESOPHAGUS 30CM FROM INCISORS, PD-L1 +, LN+ RT PARATRACHEAL/ RT RETOCRUAL/ PROX PERIGATRIC/ RETROPERITONEAL, 1 YR H/O DIFFICULTY SWALLOWING WT LOSS CONTINUES 252# 6 MO AGO NOW 193#, LRGE FUNGATING MASS NON CIRC A@ GEL, LIQUIDS ONLY BUT SPITS THAT UP, PEG TUBE (01/05/2025), PORT CONSULT JAN 24, PRIOR PROSTATE XRT 6600cGy/33FX/42ED- 09/03/2022 STAGE: Sofia ??? T2N3M0 ICD-10: C15.5, C77.1, C77.2 Radiotherapy to date: Prostate 66 Gy in 33 fx completion 09/03/2022 adj xrt Chief Complaint / History of Present Illness: Patient and . Took discuss chemo radiation therapy for distal esophageal MD-Adenocarcinoma. This is a pleasant 74-year-old white male who looks younger than stated age. Patient has had difficulty swallowing for 1 year. Patient underwent EGD on 12/26/2024 showing a large fungating mass in the distal esophagus extending to the GE junction at 30 cm from the incisors with partial obstruction but not circumferential consist with Siewert Type I Lesion. BX returned MD ADENOCARCINOMA Distal Esophagus that was PD-L1 +, H2N-, MSI Stable. PEG tube placement by IR on 01/05/2025 [facility]. They were told they did not qualify for Home Health at that time. PET/CT on 01/12/2025 showed a distal esophageal thickening there was FDG avid (32.6), right upper paratracheal lymph node 0.6 cm (9.7, left posterior mediastinal LN 1.2 cm (19.8, lower right aorto esophageal LN 2.1 cm (21.9) right retrocrural LN 0.7 cm (9.0) anterior aortocaval LN 0.6 cm (4.3) proximal perigastric LN 1.1 cm (5.3) Port placement evaluation/consult on 01/24/2025 Needs continuous feed at home authorization. Current Medications: apixaban (Eliquis) 5 mg PO BID [Diabetic shoes With 3 pairs of inserts] digoxin TAKE 1 TABLET DAILY insulin NPH isoph U-100 human (Humulin N NPH U-100 Insulin KwikPen) 10 units SUBCUT BID lisinopril TAKE 1 TABLET DAILY [medial brim presser brace, right knee As directed] metformin 1,000 mg PO BID metoprolol tartrate TAKE 1 TABLET TWICE A DAY simvastatin TAKE 1 TABLET DAILY solifenacin 5 mg PO DAILY sucralfate 1 g PO QID Allergies: prednisone Allergy (Intermediate,) Unknown Medical History: Prostate cancer PATHOLOGY: Bilateral large volume involvement of Boling 3+4, 4+3, (50-95%) and one area of 4+4 (60%) STAGING STUDIES: CT Scan abdomen and Pelvis: no evidence of metastatic disease Bone Scan: No evidence of metastatic disease Atrial fibrillation Anticoagulant long-term use Dyslipidemia Diabetes HTN (hypertension) Renal calculi Surgical History: Status post laser lithotripsy of ureteral calculus S/P extracorporeal shock wave therapy Family History: Father , AGE 58 Stroke Mother CAD (coronary artery disease) Myocardial infar Social History: Smoking and tobacco/nicotine status: never used tobacco/nicotine Alcohol intake: never Substance/Drug Use: never Marital status: Current occupational status: retired Dietary Habits Caffeine: Yes Caffeine intake frequency: tea Current Complaints / Review of Systems: . 12 point ROS noncontributory except as noted above Vital Signs: Performed on 01/18/2025 9:09 AM BMI - 26.918 kg/m2 (high), Height - 71 in, Weight - 193 lbs, Temperature - 96.1 f, Pulse - 67 /min, Respiration - 18 /min, O2 Sat - 100 %, Pain - 0, Fatigue - 0 and BP - 128/ 70 mm(hg). Physical Exam: General: Alert and oriented x 3. No acute distress. Looks younger than stated age HEENT: Normocephalic, atraumatic. Long wavy guo hair. Extraocular Movements Intact: Pupils Equal, Round, Reactive to Light and Accommodation: Sclerae anicteric. Oral cavity is clear without lesions, masses or ulcers. NECK: Supple without supraclavicular or jugular lymphadenopathy. LUNGS: Clear to auscultation bilaterally without rales, rhonchi or wheeze. HEART: Regular rate and rhythm, normal S1 and S2 without murmur, gallop or rub. MUSCULOSKELETAL: No tenderness or percussion pain over the axial skeleton, scapulae or pelvis. ABDOMEN: Soft, nontender, nondistended without masses or organomegaly. Bowell sounds are present. Midline feeding tube without signs of infection EXTREMITIES: No peripheral edema is identified. Limited motor and sensory examination are grossly intact and symmetric bilaterally. NEUROLOGIC: Cranial nerves II ???XII are grossly intact. Normal sensation, strength 5/5 in all extremities, normal gait, no ataxia. Performance Status: KPS 90 Pathology: Primary, c77.2 - secondary and unspecified malignant neoplasm of intra-abdominal lymph nodes, Diagnosed 01/12/2025 (active) , Primary, c77.1 - secondary and unspecified malignant neoplasm of intrathoracic lymph nodes, Diagnosed 01/12/2025 (active) , Primary, c15.5 - malignant neoplasm of lower third of esophagus, Diagnosed 12/26/2024 (active) and Primary, c61 - malignant neoplasm of prostate, Diagnosed 04/04/2020 (active) . 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 MD ADENOCARCINOMA DISTAL ESOPHAGUS 30CM FROM INCISORS, PD-L1 +, LN+ RT PARATRACHEAL/ RT RETOCRUAL/ PROX PERIGATRIC/ RETROPERITONEAL, 1 YR H/O DIFFICULTY SWALLOWING WT LOSS CONTINUES 252# 6 MO AGO NOW 193#, LRGE FUNGATING MASS NON CIRC A@ GEL, LIQUIDS ONLY BUT SPITS THAT UP, PEG TUBE (01/05/2025), PORT CONSULT JAN 24, PRIOR PROSTATE XRT 6600cGy/33FX/42ED- 09/03/2022 STAGE: Sofia ??? T2N3M0 ICD-10: C15.5, C77.1, C77.2 PLAN: Options were discussed in detail with the patient and . Questions answered to their satisfaction NCCN guidelines discussed Plan IMRT based treatment of the lymph nodes esophageal tumor to approximately 5040 cGy in 28 fractions 3 to 4 cm superior and inferior into the cardia from gross tumor, 1 cm radial margin, 0.5 to 1.[address], cover the splenic lesser curvature and celiac lymph nodes. Wire of the PEG tube before simulation Highly consider 4D simulation due to mediastinal lymph nodes. Commend simulation a day after port placement has been done. Recommend 2500 holden/day per feeding tube as well as at least 1 L of 50% water and 50% Pedialyte type agent daily Highly recommend home health participation Recommend continuous feeding tube appliance in the home with home health education of its use. Signed by: 01/18/2025 10:16:05 AM <<Signature on File>> Time spent with patient//images reviewed/ document created: 95 minutes CPT Code: CPT Code:
== END 2025-02-02 23:59 | disposition home or self-care (01) ==
PROVIDERS: PCP Electrodiagnostic Medicine; Visit Provider Internal Medicine
DX: Z51.0 Encounter for antineoplastic radiation therapy (principal); C77.1 Secondary and unspecified malignant neoplasm of intrathoracic lymph nodes; C15.5 Malignant neoplasm of lower third of esophagus; C77.2 Secondary and unspecified malignant neoplasm of intra-abdominal lymph nodes
CPT/HCPCS: 77300; 77301; 77334; 77338; 77470; 78815; 99205; 99213; A9552

== ENCOUNTER → 2025-02-12 08:04 | Outpatient (BNVA) | payer MEDICARE, SELFPAY | PROVIDERS: PCP Electrodiagnostic Medicine; Visit Provider Surgery | DX: Z95.828 Presence of other vascular implants and grafts (principal) | CPT/HCPCS: 99213 ==

== ENCOUNTER 2025-02-21 08:08 | Oncology outpatient (recurring) (ONCR) | payer MEDICARE, SELFPAY ==
[2025-02-07 10:02] LABS: Hematocrit 36.8 % (37-53); Hemoglobin 12.10 g/dL (11.27-16.99); Mean Corpuscular HGB Conc 32.9 g/dL (30-55); Mean Corpuscular Hemoglobin 31.6 pg (27-33); Mean Corpuscular Volume 96.1 fl (82-101); Nucleated Red Blood Cells % 0 %; Platelet Count 184 10^3/cmm (157-399); Red Blood Count 3.83 10^6/uL (3.85-5.65); White Blood Count 4.87 10^3/uL (3.29-11.43)
[2025-02-07 10:30] LABS: Alanine Aminotransferase 24 U/L (0-41); Albumin Level 3.6 g/dL (3.5-5.2); Alkaline Phosphatase 74 U/L (40-130); Anion Gap 18.2 (5-19); Aspartate Amino Transferase 26 U/L (0-40); Blood Urea Nitrogen 13 mg/dL (8-23); Calcium 8.8 mg/dL (8.5-10.5); Carbon Dioxide 23 mmol/L (22-29); Chloride 102 mmol/L (98-107); Globulin 2.8 g/dL (1.3-4.6); Glucose 254 mg/dL (65-115); Osmolality Calculated 297 mOsm/kg (285-295); Potassium 4.2 mmol/L (3.5-5.1); Sodium 139 mmol/L (136-145); Thyroid Stimulating Hormone 1.53 uIU/mL (0.27-4.20); Total Protein 6.4 g/dL (6.6-8.7)
[2025-02-07] MEDS: dexamethasone 4 mg/mL INJ 5 mL 12 MG IVP (12:39)
[2025-02-07] MEDS: leucovorin 830 MG in dextrose 5% 250 ML 166.5 MG IV (13:45)
[2025-02-07] MEDS: oxaliplatin 176 MG in dextrose 5% 250 ML 142.6 MG IV (13:46)
[2025-02-07] MEDS: fluorouraciL 50 mg/ml MDV 100 mL 850 MG IVP (16:05)
[2025-02-07 16:35] VITALS: BP 148/82; PULSE 84; RESP 18; TEMP 36.6; O2SAT 98
[2025-02-09] MEDS: ondansetron 2 mg/ML SDV 2 mL 8 MG IVP (10:08)
[2025-02-09 11:12] VITALS: BP 149/75; PULSE 69; RESP 16; TEMP 36.4; O2SAT 99
--- NOTE | 2025-02-13 10:39 | ONCRAD TMN_ITS ---
Radiation Oncology Weekly Treatment Management Patient: Ayaan Stanley MR#: [id number] : 1950 Attending Physician: Mohsen Sifuentes Date of Service: 02/13/2025 Referring Physician(s) : Jamal Aggarwal Diagnosis: C77.2 - Secondary and unspecified malignant neoplasm of intra-abdominal lymph nodes, Diagnosed 01/12/2025 (Active) C77.1 - Secondary and unspecified malignant neoplasm of intrathoracic lymph nodes, Diagnosed 01/12/2025 (Active) C15.5 - Malignant neoplasm of lower third of esophagus, Diagnosed 12/26/2024 (Active) C61 - Malignant neoplasm of prostate, Diagnosed 04/04/2020 (Active) Radiotherapy to date: Course: esophagus, Treatment Site: Esophageal Ca, Ref. ID: PTV, Energy: 6X, Dose/Fx (cGy): 200, #Fx: , Dose Correction (cGy): 0, Total Dose Delivered (cGy): 1,000, Start Date: 02/07/2025, Elapsed Days: 6 Reason for visit: The patient is being seen today as part of their regularly scheduled weekly on treatment visits to assess for acute toxicities from radiotherapy. Review of Systems: No voiced complaints. Labs were adequate last week for chemotherapy awaiting those results today. Vital Signs: Performed on 02/13/2025 10:03 AM BMI - 26.89 kg/m2 (high), Height - 71 in, Weight - 192.8 lbs, Temperature - 96.7 f, Pulse - 62 /min, Respiration - 17 /min, O2 Sat - 100 %, Pain - 0, Fatigue - 0 and BP - 121/ 83 mm(hg). Physical Exam: AAOx3. Skin intact Imaging: Radiation therapy imaging related to accurate target localization (i.e. KV, MV and CBCT) was reviewed. Appropriate changes, if any, were made to ensure treatment accuracy. Plan: Continue chemoradiation therapy for esophageal carcinoma Signed by: Mohsen Sifuentes 02/13/2025 10:37:58 AM
[2025-02-13 11:02] LABS: Hematocrit 35.1 % (37-53); Hemoglobin 11.90 g/dL (11.27-16.99); Mean Corpuscular HGB Conc 33.9 g/dL (30-55); Mean Corpuscular Hemoglobin 32.4 pg (27-33); Mean Corpuscular Volume 95.6 fl (82-101); Nucleated Red Blood Cells % 0 %; Platelet Count 158 10^3/cmm (157-399); Red Blood Count 3.67 10^6/uL (3.85-5.65); White Blood Count 3.40 10^3/uL (3.29-11.43)
[2025-02-13 11:20] LABS: Alanine Aminotransferase 24 U/L (0-41); Albumin Level 3.6 g/dL (3.5-5.2); Alkaline Phosphatase 72 U/L (40-130); Anion Gap 13.8 (5-19); Aspartate Amino Transferase 24 U/L (0-40); Blood Urea Nitrogen 13 mg/dL (8-23); Calcium 8.5 mg/dL (8.5-10.5); Carbon Dioxide 25 mmol/L (22-29); Chloride 102 mmol/L (98-107); Globulin 2.1 g/dL (1.3-4.6); Glucose 280 mg/dL (65-115); Osmolality Calculated 292 mOsm/kg (285-295); Potassium 4.8 mmol/L (3.5-5.1); Sodium 136 mmol/L (136-145); Total Protein 5.7 g/dL (6.6-8.7)
--- NOTE | 2025-02-20 11:02 | ONCRAD TMN_ITS ---
Radiation Oncology Weekly Treatment Management Patient: Ayaan Stanley MR#: [id number] : 1950 Attending Physician: Mohsen Sifuentes Date of Service: 02/20/2025 Referring Physician(s) : Jamal Aggarwal Diagnosis: C77.2 - Secondary and unspecified malignant neoplasm of intra-abdominal lymph nodes, Diagnosed 01/12/2025 (Active) C77.1 - Secondary and unspecified malignant neoplasm of intrathoracic lymph nodes, Diagnosed 01/12/2025 (Active) C15.5 - Malignant neoplasm of lower third of esophagus, Diagnosed 12/26/2024 (Active) C61 - Malignant neoplasm of prostate, Diagnosed 04/04/2020 (Active) Radiotherapy to date: Course: esophagus, Treatment Site: Esophageal Ca, Ref. ID: PTV, Energy: 6X, Dose/Fx (cGy): 200, #Fx: , Dose Correction (cGy): 0, Total Dose Delivered (cGy): 2,000, Start Date: 02/07/2025, End Date: 02/20/2025, Elapsed Days: 13 Reason for visit: The patient is being seen today as part of their regularly scheduled weekly on treatment visits to assess for acute toxicities from radiotherapy. Review of Systems: 100% feeding tube usage. He continues to lose weight and only gets 4 cartons per day. I did tell him to increase so that he gets 2500 holden/day. He receives chemo on Wednesdays and his labs are adequate at this point. Vital Signs: Performed on 02/20/2025 10:52 AM BMI - 26.667 kg/m2 (high), Height - 71 in, Weight - 191.2 lbs, Temperature - 96 f, Pulse - 50 /min (low), Respiration - 18 /min, O2 Sat - 98 %, Pain - 0, Fatigue - 0 and BP - 112/ 56 mm(hg)(/low). Physical Exam: Skin intact. AAO x3. FT intact Imaging: Radiation therapy imaging related to accurate target localization (i.e. KV, MV and CBCT) was reviewed. Appropriate changes, if any, were made to ensure treatment accuracy. Plan: Continue XRT Increase calorie count Chemotherapy on Wednesdays. Signed by: Mohsen Sifuentes 02/20/2025 11:01:21 AM
[2025-02-21 08:48] LABS: Hematocrit 37.0 % (37-53); Hemoglobin 12.10 g/dL (11.27-16.99); Mean Corpuscular HGB Conc 32.7 g/dL (30-55); Mean Corpuscular Hemoglobin 31.8 pg (27-33); Mean Corpuscular Volume 97.4 fl (82-101); Nucleated Red Blood Cells % 0 %; Platelet Count 118 10^3/cmm (157-399); Red Blood Count 3.80 10^6/uL (3.85-5.65); White Blood Count 2.18 10^3/uL (3.29-11.43)
[2025-02-21 09:11] LABS: Alanine Aminotransferase 23 U/L (0-41); Albumin Level 3.8 g/dL (3.5-5.2); Alkaline Phosphatase 69 U/L (40-130); Anion Gap 13.2 (5-19); Aspartate Amino Transferase 25 U/L (0-40); Blood Urea Nitrogen 13 mg/dL (8-23); Calcium 8.8 mg/dL (8.5-10.5); Carbon Dioxide 27 mmol/L (22-29); Chloride 101 mmol/L (98-107); Globulin 2.5 g/dL (1.3-4.6); Glucose 127 mg/dL (65-115); Magnesium 2.0 mg/dL (1.7-2.3); Osmolality Calculated 286 mOsm/kg (285-295); Potassium 4.2 mmol/L (3.5-5.1); Sodium 137 mmol/L (136-145); Total Protein 6.3 g/dL (6.6-8.7)
== END 2025-02-21 23:59 | disposition home or self-care (01) ==
PROVIDERS: Nurse Practitioner; PCP Electrodiagnostic Medicine; Visit Provider Radiology Radiation Oncology
DX: Z53.9 Procedure and treatment not carried out, unspecified reason; Z51.0 Encounter for antineoplastic radiation therapy; C61 Malignant neoplasm of prostate; C15.5 Malignant neoplasm of lower third of esophagus; C77.2 Secondary and unspecified malignant neoplasm of intra-abdominal lymph nodes; R13.10 Dysphagia, unspecified; C77.1 Secondary and unspecified malignant neoplasm of intrathoracic lymph nodes; E11.9 Type 2 diabetes mellitus without complications; K20.90 Esophagitis, unspecified without bleeding; R52 Pain, unspecified; F91.8 Other conduct disorders; Z79.899 Other long term (current) drug therapy
CPT/HCPCS: 36591; 77336; 77385; 77386; 80053; 83615; 83735; 84443; 85025; 96360; 96367; 96368; 96375; 96411; 96413; 96415; 96416; 96523; 99024; 99213; 99214; 99215; J0640; J1100; J1453; J2405; J2469; J3490; J7030; J7060; J9190; J9263

== ENCOUNTER 2025-03-02 08:50 | Oncology outpatient (recurring) (ONCR) | payer MEDICARE, SELFPAY ==
[2025-02-26 09:21] LABS: Hematocrit 34.8 % (37-53); Hemoglobin 11.60 g/dL (11.27-16.99); Mean Corpuscular HGB Conc 33.3 g/dL (30-55); Mean Corpuscular Hemoglobin 32.0 pg (27-33); Mean Corpuscular Volume 96.1 fl (82-101); Nucleated Red Blood Cells % 0 %; Platelet Count 132 10^3/cmm (157-399); Red Blood Count 3.62 10^6/uL (3.85-5.65); White Blood Count 1.57 10^3/uL (3.29-11.43)
[2025-02-26 09:40] LABS: Alanine Aminotransferase 31 U/L (0-41); Albumin Level 3.8 g/dL (3.5-5.2); Alkaline Phosphatase 75 U/L (40-130); Anion Gap 15.6 (5-19); Aspartate Amino Transferase 29 U/L (0-40); Blood Urea Nitrogen 11 mg/dL (8-23); Calcium 8.8 mg/dL (8.5-10.5); Carbon Dioxide 25 mmol/L (22-29); Chloride 98 mmol/L (98-107); Globulin 2.4 g/dL (1.3-4.6); Glucose 350 mg/dL (65-115); Magnesium 1.9 mg/dL (1.7-2.3); Osmolality Calculated 291 mOsm/kg (285-295); Potassium 4.6 mmol/L (3.5-5.1); Sodium 134 mmol/L (136-145); Total Protein 6.2 g/dL (6.6-8.7)
[2025-02-28 09:30] VITALS: BP 79/56; PULSE 68; RESP 17; TEMP 36.6; O2SAT 99
[2025-02-28 11:35] VITALS: BP 126/72; PULSE 60; RESP 17; TEMP 36.6; O2SAT 99
[2025-03-01 09:06] VITALS: BP 104/48; PULSE 73; RESP 18; TEMP 36.7; O2SAT 98
[2025-03-02 09:10] VITALS: BP 115/62; PULSE 55; RESP 16; TEMP 36.1; O2SAT 98
== END 2025-03-02 23:59 | disposition home or self-care (01) ==
LOC: ONCMED 03-05 09:50
PROVIDERS: Internal Medicine; PCP Electrodiagnostic Medicine; Visit Provider Radiology Radiation Oncology
DX: C15.5 Malignant neoplasm of lower third of esophagus (principal); Z79.899 Other long term (current) drug therapy
CPT/HCPCS: 36415; 77336; 77386; 80053; 83615; 83735; 85025; 87040; 96360; 96372; 96377; 99214; J7030; Q5101

== ENCOUNTER 2025-03-21 07:30 | Oncology outpatient (recurring) (ONCR) | payer MEDICARE, SELFPAY ==
--- NOTE | 2025-03-06 11:21 | ONCRAD TMN_ITS ---
Radiation Oncology Weekly Treatment Management Patient: Ayaan Stanley MR#: [id number] : 1950 Attending Physician: Dr. Munira Sanchez Date of Service: 03/06/2025 Referring Physician(s) : Jamal Aggarwal Diagnosis: C77.2 - Secondary and unspecified malignant neoplasm of intra-abdominal lymph nodes, Diagnosed 01/12/2025 (Active) C77.1 - Secondary and unspecified malignant neoplasm of intrathoracic lymph nodes, Diagnosed 01/12/2025 (Active) C15.5 - Malignant neoplasm of lower third of esophagus, Diagnosed 12/26/2024 (Active) C61 - Malignant neoplasm of prostate, Diagnosed 04/04/2020 (Active) Radiotherapy to date: Course: esophagus, Treatment Site: Esophageal Ca, Ref. ID: PTV, Energy: 6X, Dose/Fx (cGy): 200, #Fx: , Dose Correction (cGy): 0, Total Dose Delivered (cGy): 3,400, Start Date: 02/07/2025, Elapsed Days: 27 Reason for visit: The patient is being seen today as part of their regularly scheduled weekly on treatment visits to assess for acute toxicities from radiotherapy. Review of Systems: Patient is doing well. He is no longer having any real difficulty swallowing. His weight has gone up 6 pounds. Vital Signs: Performed on 03/06/2025 10:25 AM BMI - 27.058 kg/m2 (high), Height - 71 in, Weight - 194 lbs, Temperature - 97.3 f, Pulse - 65 /min, Respiration - 17 /min, O2 Sat - 100 %, Pain - 0, Fatigue - 0 and BP - 110/ 66 mm(hg). Physical Exam: He is sitting comfortably. He has no real changes on exam.. Imaging: Radiation therapy imaging related to accurate target localization (i.e. KV, MV and CBCT) was reviewed. Appropriate changes, if any, were made to ensure treatment accuracy. Plan: Will continue with the treatments as planned Signed by: Dr. Munira Sanchez 03/06/2025 11:19:42 AM
[2025-03-07 08:02] LABS: Hematocrit 34.5 % (37-53); Hemoglobin 11.50 g/dL (11.27-16.99); Mean Corpuscular HGB Conc 33.3 g/dL (30-55); Mean Corpuscular Hemoglobin 32.5 pg (27-33); Mean Corpuscular Volume 97.5 fl (82-101); Nucleated Red Blood Cells % 0 %; Platelet Count 88 10^3/cmm (157-399); Red Blood Count 3.54 10^6/uL (3.85-5.65); White Blood Count 3.62 10^3/uL (3.29-11.43)
[2025-03-07 08:24] LABS: Alanine Aminotransferase 26 U/L (0-41); Albumin Level 3.6 g/dL (3.5-5.2); Alkaline Phosphatase 70 U/L (40-130); Anion Gap 13.4 (5-19); Aspartate Amino Transferase 33 U/L (0-40); Blood Urea Nitrogen 12 mg/dL (8-23); Calcium 8.6 mg/dL (8.5-10.5); Carbon Dioxide 26 mmol/L (22-29); Chloride 99 mmol/L (98-107); Globulin 2.5 g/dL (1.3-4.6); Glucose 209 mg/dL (65-115); Osmolality Calculated 284 mOsm/kg (285-295); Potassium 4.4 mmol/L (3.5-5.1); Sodium 134 mmol/L (136-145); Total Protein 6.1 g/dL (6.6-8.7)
[2025-03-07] MEDS: dexamethasone 4 mg/mL INJ 5 mL 12 MG IVP (10:15)
[2025-03-07] MEDS: leucovorin 750 MG in dextrose 5% 250 ML 125 MG IV (11:20)
[2025-03-07 13:27] VITALS: BP 144/89; PULSE 51; TEMP 36.3; O2SAT 98
[2025-03-07] MEDS: fluorouraciL 50 mg/ml MDV 100 mL 750 MG IVP (13:29)
[2025-03-09 10:00] VITALS: BP 95/58; PULSE 56; RESP 17; TEMP 36.3; O2SAT 100
--- NOTE | 2025-03-13 10:30 | ONCRAD TMN_ITS ---
Radiation Oncology Weekly Treatment Management Patient: Ayaan Stanley MR#: [id number] : 1950 Attending Physician: Dr. Munira Sanchez Date of Service: 03/13/2025 Referring Physician(s) : Jamal Aggarwal Diagnosis: C77.2 - Secondary and unspecified malignant neoplasm of intra-abdominal lymph nodes, Diagnosed 01/12/2025 (Active) C77.1 - Secondary and unspecified malignant neoplasm of intrathoracic lymph nodes, Diagnosed 01/12/2025 (Active) C15.5 - Malignant neoplasm of lower third of esophagus, Diagnosed 12/26/2024 (Active) C61 - Malignant neoplasm of prostate, Diagnosed 04/04/2020 (Active) Radiotherapy to date: Course: esophagus, Treatment Site: Esophageal Ca, Ref. ID: PTV, Energy: 6X, Dose/Fx (cGy): 200, #Fx: , Dose Correction (cGy): 0, Total Dose Delivered (cGy): 4,200, Start Date: 02/07/2025, End Date: 03/13/2025, Elapsed Days: 34 Reason for visit: The patient is being seen today as part of their regularly scheduled weekly on treatment visits to assess for acute toxicities from radiotherapy. Review of Systems Pt had emesis last night after overfilled stomach with water. Constipation has resolved. Has appointments in cardiology and MR for MR head today. Developed HIDALGO after CT which prompted MR head Vital Signs: Performed on 03/13/2025 10:04 AM BMI - 26.695 kg/m2 (high), Height - 71 in, Weight - 191.4 lbs, Temperature - 95.4 f, Pulse - 66 /min, Respiration - 19 /min, O2 Sat - 100 %, Pain - 0, Fatigue - 0 and BP - 132/ 73 mm(hg). Physical Exam: No changes on exam Imaging: Radiation therapy imaging related to accurate target localization (i.e. KV, MV and CBCT) was reviewed. Appropriate changes, if any, were made to ensure treatment accuracy. Plan: continue treatments ???done Wednesday. Signed by: Dr. Munira Sanchez 03/13/2025 10:29:06 AM
--- NOTE | 2025-03-13 14:30 | MR_ITS ---
WS: [id number] MRI HEAD WITH CONTRAST TECHNIQUE: Sagittal T1, T2 axial, T2 axial FLAIR, axial susceptibility weighted imaging, axial diffusion weighted images, and coronal T2 images were obtained. Pre and post-T1 axial and post T1 coronal images. ADC and FSPGR images. CLINICAL INFORMATION: persistent HIDALGO, personality changes COMPARISON: None. FINDINGS: No evidence of restricted diffusion to suggest acute ischemia. Ventricular system and basal cisterns are patent. Mild small vessel changes. Moderate parenchymal volume loss. Small vessel changes in the zaina. Tiny chronic lacunar infarcts in the RIGHT greater than LEFT cerebellum. Small vessel changes in the zaina. Normal vascular flow voids at the skull base. No extra-axial fluid collections. Paranasal sinuses and mastoid air cells are well aerated. No hemosiderin on the susceptibility weighted images. Normal optic chiasm and pituitary infundibulum. Moderate symmetric atrophy temporal lobes and hippocampal formations. No evidence of enhancing intracranial metastatic disease. MR/MR head wo/w con [id number] IMPRESSION: 1. No evidence of enhancing intracranial metastatic disease. 2. Small vessel changes with moderate parenchymal volume loss. Small vessel ch anges in the zaina. 3. Tiny chronic lacunar infarcts in the cerebellum. 4. Moderate symmetric atrophy temporal lobes and hippocampal formations. 5. No other acute findings.
[2025-03-13] MEDS: gadobenate dimeglumine 20 mL vial 18 ML IV (15:49)
--- NOTE | 2025-03-13 16:56 | PC.NURSE ---
Patient returned to infusion suite and was extremely short of breath and color was ashen with o2 sat at89% to 99%. Extremly weak and very unsteady on feet with wheelchair assistance. MRI was done prior and the IV port accessed to be deaccessed but his wasnt available and with further assessment he said he didn't feel well. No cough his skin tint was cyanotic tinged with verbal referral from Lili BARRETT to give him option for ER evaluation of which he states he did think it would be okay. His met him in ER waiting area with conversation with him that he told her not to ever let him go to ER again so he declined any further assessment and wanted to go home. Port was deaccessed with normal saline and heparin lock flush using aseptic technique and he was assisted in the car for to take him home. He was instructed that Lili BARRETT wanted to have lab work tomorrow at noon and office visit at 13:00 pm prior to his radiation treatment. with verbal acknowledgement.[email or web address]
[2025-03-14 11:54] LABS: Hematocrit 33.5 % (37-53); Hemoglobin 11.50 g/dL (11.27-16.99); Mean Corpuscular HGB Conc 34.3 g/dL (30-55); Mean Corpuscular Hemoglobin 33.0 pg (27-33); Mean Corpuscular Volume 96.3 fl (82-101); Nucleated Red Blood Cells % 0 %; Platelet Count 147 10^3/cmm (157-399); Red Blood Count 3.48 10^6/uL (3.85-5.65); White Blood Count 2.80 10^3/uL (3.29-11.43)
[2025-03-14 12:14] LABS: Alanine Aminotransferase 31 U/L (0-41); Albumin Level 3.8 g/dL (3.5-5.2); Alkaline Phosphatase 69 U/L (40-130); Anion Gap 16.9 (5-19); Aspartate Amino Transferase 33 U/L (0-40); Blood Urea Nitrogen 12 mg/dL (8-23); Calcium 8.7 mg/dL (8.5-10.5); Carbon Dioxide 21 mmol/L (22-29); Chloride 100 mmol/L (98-107); Globulin 2.4 g/dL (1.3-4.6); Glucose 248 mg/dL (65-115); Osmolality Calculated 286 mOsm/kg (285-295); Potassium 3.9 mmol/L (3.5-5.1); Sodium 134 mmol/L (136-145); Total Protein 6.2 g/dL (6.6-8.7)
--- NOTE | 2025-03-19 10:48 | N.ONRD TS_ITS ---
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 ID: [id number], Energy: 6X, Dose/Fx (cGy): 200, #Fx: 25 / 25, Dose Correction (cGy): 0, Total Dose Delivered (cGy): 5,000, Start Date: 02/07/2025, End Date: 03/19/2025, Elapsed Days: 40 Course: Prostate Ca BCF, Treatment Site: Prostate Ca - Biochemical Failure, Ref. ID: [id number], Energy: 6X, Dose/Fx (cGy): 200, #Fx: 33 / 33, Dose Correction (cGy): 0, Total Dose Delivered (cGy): 6,600, Start Date: 07/20/2022, End Date: 09/03/2022, Elapsed Days: 45 Vital Signs: Performed on 03/19/2025 9:59 AM BMI - 26.583 kg/m2 (high), Height - 71 in, Weight - 190.6 lbs, Temperature - 98 f, Pulse - 66 /min, Respiration - 18 /min, O2 Sat - 99 %, Pain - 0, Fatigue - 0 and BP - 102/ 57 mm(hg)(/low). Clinical Summary: The patient tolerated RT well. He only lost 2 pounds since his consult weight was documented. He looks well-hydrated and well-nourished. He is able to get liquids down. I encouraged him to try some softer foods at this time. MRI of the brain on 03/15/2025 showed no evidence of metastatic disease. Plan: End of treatment today. Continue on the above medication until the skin reaction resolves. Follow up in one month. And caries calories by oral intake to see how he does. Signed by: Mohsen Sifuentes>03/19/2025 10:48:48 AM <<Signature on File>>
[2025-03-21 08:01] LABS: Hematocrit 32.8 % (37-53); Hemoglobin 11.00 g/dL (11.27-16.99); Mean Corpuscular HGB Conc 33.5 g/dL (30-55); Mean Corpuscular Hemoglobin 32.9 pg (27-33); Mean Corpuscular Volume 98.2 fl (82-101); Nucleated Red Blood Cells % 0 %; Platelet Count 137 10^3/cmm (157-399); Red Blood Count 3.34 10^6/uL (3.85-5.65); White Blood Count 1.84 10^3/uL (3.29-11.43)
[2025-03-21 08:15] LABS: Alanine Aminotransferase 22 U/L (0-41); Albumin Level 3.5 g/dL (3.5-5.2); Alkaline Phosphatase 71 U/L (40-130); Anion Gap 14.2 (5-19); Aspartate Amino Transferase 27 U/L (0-40); Blood Urea Nitrogen 14 mg/dL (8-23); Calcium 8.5 mg/dL (8.5-10.5); Carbon Dioxide 24 mmol/L (22-29); Chloride 98 mmol/L (98-107); Ferritin 309 ng/mL (30-400); Globulin 2.3 g/dL (1.3-4.6); Glucose 231 mg/dL (65-115); Iron 109 ug/dL (59-158); Osmolality Calculated 282 mOsm/kg (285-295); Potassium 4.2 mmol/L (3.5-5.1); Sodium 132 mmol/L (136-145); Total Iron Binding Capacity 268 mcg/dl; Total Protein 5.8 g/dL (6.6-8.7); Unsaturated Iron Binding 159 ug/dL (112-347)
[2025-03-21 08:30] LABS: Vitamin B12 802 pg/mL (232-1245)
[2025-03-21 08:47] LABS: Slide Review Slide Review Perform
[2025-03-21 09:34] VITALS: BP 121/68; PULSE 66; RESP 17; TEMP 36.5; O2SAT 99
[2025-03-21] MEDS: dexamethasone 4 mg/mL INJ 5 mL 12 MG IVP (09:54)
[2025-03-21] MEDS: leucovorin 740 MG in dextrose 5% 250 ML 125 MG IV (10:58)
[2025-03-21] MEDS: fluorouraciL 50 mg/ml MDV 100 mL 750 MG IVP (13:11)
[2025-03-21] MEDS: FLUOROURACIL IV (13:11)
[2025-03-21] MEDS: ELASTOMERIC PUMP PUMP IV (13:11)
[2025-03-21] MEDS: SODIUM CHLORIDE IV (13:11)
[2025-03-21 13:21] VITALS: BP 147/72; PULSE 66; RESP 16; TEMP 36.5; O2SAT 99
== END 2025-03-21 23:59 | disposition home or self-care (01) ==
PROVIDERS: Internal Medicine; Internal Medicine Medical Oncology; PCP Electrodiagnostic Medicine; Visit Provider Radiology Radiation Oncology
DX: Z53.9 Procedure and treatment not carried out, unspecified reason; Z51.11 Encounter for antineoplastic chemotherapy; C15.5 Malignant neoplasm of lower third of esophagus; Z85.46 Personal history of malignant neoplasm of prostate; R13.10 Dysphagia, unspecified; Z87.891 Personal history of nicotine dependence; Z92.3 Personal history of irradiation; E11.9 Type 2 diabetes mellitus without complications; K46.9 Unspecified abdominal hernia without obstruction or gangrene; I48.91 Unspecified atrial fibrillation; Z79.4 Long term (current) use of insulin; Z95.828 Presence of other vascular implants and grafts; D70.1 Agranulocytosis secondary to cancer chemotherapy; T45.1X5A Adverse effect of antineoplastic and immunosuppressive drugs, initial encounter; Z79.899 Other long term (current) drug therapy
CPT/HCPCS: 36415; 70553; 77014; 77336; 77386; 77427; 80053; 82607; 82728; 82746; 83540; 83550; 85025; 96367; 96368; 96375; 96411; 96413; 96415; 96416; 96523; 99024; 99213; 99214; J0640; J1100; J1453; J2469; J3490; J7060; J9190; J9263

== ENCOUNTER 2025-04-04 08:00 | Oncology outpatient (recurring) (ONCR) | payer MEDICARE, SELFPAY ==
--- NOTE | 2025-03-30 06:15 | USCV_ITS ---
Ayaan Stanley Age: 74 Gender: M : 1950 Exam Date: 03/30/2025 06:31 Ordering Phys: Mohsen Sifuentes DO Technologist: Shaun Chicas [place] [facility] [place]: sob BP: 116 / 72 HR: 81 Rhythm: Atrial flutter Technical Quality: Adequate MEASUREMENTS (Male / Female) Normal Values 2D ECHO LV Diastolic Diameter PLAX 5.5 cm 4.2 - 5.9 / 3.9 - 5.3 cm IVS Diastolic Thickness 0.8 cm 0.6 - 1.0 / 0.6 - 0.9 cm IVS Systolic Thickness 0.8 cm LVPW Diastolic Thickness 1.0 cm 0.6 - 1.0 / 0.6 - 0.9 cm LVPW Systolic Thickness 1.4 cm LVOT Diameter 2.1 cm LV Ejection Fraction 2D Teich 61.1 % LV Ejection Fraction MOD 4C 66.8 % LV Ejection Fraction MOD 2C 67.2 % LV Ejection Fraction 2C AL 66.3 % LA Diameter 4.2 cm RA Systolic Volume 4C AL 56.0 ml RA Systolic Volume 4C MOD 54.9 ml LA Sys Volume AL 123.7 cm cubed LA Sys Volume Index AL 59.0 cm cubed/m squared Aorta at Sinotubular Diameter 3.4 cm IVC Diameter 1.6 cm M-MODE LA Ao Ratio MM 1.7 AV Cusp Separation MM 1.7 cm DOPPLER AV Peak Velocity 122.0 cm/s LVOT Peak Velocity 97.0 cm/s AV Area Cont Eq vti 2.8 cm squared AV Area Cont Eq pk 2.6 cm squared MV Peak Velocity 91.0 cm/s MV Area PHT 5.0 cm squared Mitral E to A Ratio 3.5 TV Peak Velocity 275.0 cm/s TR Peak Velocity 279.5 cm/s TR Peak Gradient 31.2 mmHg TR Mean Velocity 254.0 cm/s TR Mean Gradient 27.9 mmHg TR Velocity Time Integral 68.6 cm PV Peak Velocity 123.3 cm/s RV Ejection Time 0.2 s FINDINGS Left Ventricle Left ventricle is normal in size. LV systolic function is normal with EF of 55-60%. No regional wall motion abnormalities. Right Ventricle Normal in size and function Right Atrium Normal in size Left Atrium Severely dilated IA Septum Grossly normal Mitral Valve In parasternal long axis view, there is an echogenic structure seen in close proximity to anterior mitral valve leaflet. However this is not seen in other views. Can be artifact versus left atrial mass. Trace mitral regurgitation Aortic Valve Structurally normal aortic valve. No significant stenosis. Mild aortic regurgitation. Tricuspid Valve Mild tricuspid regurgitation. RVSP is 40-45 mmHg. This is consistent with mild pulmonary hypertension. 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 Mild tricuspid regurgitation. Mild pulmonary hypertension. 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 However this is not seen in other views. Can be artifact versus left atrial mass. Recommend HAL for further investigation. Michael Robins MD (Electronically Signed) Final Date: 31 March 2025 13:58 S
[2025-04-04 08:12] LABS: Hematocrit 29.1 % (37-53); Hemoglobin 9.80 g/dL (11.27-16.99); Mean Corpuscular HGB Conc 33.7 g/dL (30-55); Mean Corpuscular Hemoglobin 32.9 pg (27-33); Mean Corpuscular Volume 97.7 fl (82-101); Platelet Count 140 10^3/cmm (157-399); Red Blood Count 2.98 10^6/uL (3.85-5.65); White Blood Count 3.66 10^3/uL (3.29-11.43)
[2025-04-04 08:39] LABS: Alanine Aminotransferase 28 U/L (0-41); Albumin Level 3.4 g/dL (3.5-5.2); Alkaline Phosphatase 91 U/L (40-130); Anion Gap 18.5 (5-19); Aspartate Amino Transferase 33 U/L (0-40); Blood Urea Nitrogen 13 mg/dL (8-23); Calcium 8.3 mg/dL (8.5-10.5); Carbon Dioxide 22 mmol/L (22-29); Chloride 98 mmol/L (98-107); Globulin 2.4 g/dL (1.3-4.6); Glucose 246 mg/dL (65-115); Osmolality Calculated 286 mOsm/kg (285-295); Potassium 4.5 mmol/L (3.5-5.1); Sodium 134 mmol/L (136-145); Total Protein 5.8 g/dL (6.6-8.7)
[2025-04-04 09:19] LABS: Absolute Segmented Neutrophil 1.1 10/cmm (1.6-7.1); Atypical Lymphs 59.0 % (0-5); Band Neutrophils Absolute 0.1 10^3/cmm (0.0-1.2); Total Cells Counted 100 (0-100)
[2025-04-04 09:20] LABS: Macrocytosis 1+; Polychromasia 1+
[2025-04-04 09:35] LABS: Carcinoembryonic Antigen 121.4 ng/mL (0.0-4.7)
[2025-04-04] MEDS: dexamethasone 4 mg/mL INJ 5 mL 12 MG IVP (09:40)
[2025-04-04] MEDS: leucovorin 740 MG in dextrose 5% 250 ML 125 MG IV (10:22)
[2025-04-04] MEDS: fluorouraciL 50 mg/ml MDV 100 mL 750 MG IVP (12:59)
[2025-04-04] MEDS: SODIUM CHLORIDE IV (13:07)
[2025-04-04] MEDS: FLUOROURACIL IV (13:07)
[2025-04-04] MEDS: ELASTOMERIC PUMP PUMP IV (13:07)
[2025-04-04 13:10] VITALS: BP 121/73; PULSE 68; RESP 17; TEMP 35.9; O2SAT 96
== END 2025-04-04 23:59 | disposition home or self-care (01) ==
PROVIDERS: PCP Electrodiagnostic Medicine; Visit Provider Internal Medicine
DX: Z53.9 Procedure and treatment not carried out, unspecified reason; Z51.11 Encounter for antineoplastic chemotherapy; C15.5 Malignant neoplasm of lower third of esophagus; R13.10 Dysphagia, unspecified; Z92.3 Personal history of irradiation; Z85.46 Personal history of malignant neoplasm of prostate; E11.9 Type 2 diabetes mellitus without complications; Z95.828 Presence of other vascular implants and grafts; G89.3 Neoplasm related pain (acute) (chronic); D70.1 Agranulocytosis secondary to cancer chemotherapy; T45.1X5A Adverse effect of antineoplastic and immunosuppressive drugs, initial encounter; Z79.4 Long term (current) use of insulin; I48.91 Unspecified atrial fibrillation
CPT/HCPCS: 80053; 82378; 83615; 85007; 85025; 93306; 96366; 96368; 96375; 96411; 96413; 96415; 96416; 96523; 99213; J0640; J1100; J2469; J7060; J9190; J9263